=== PATIENT | female | born 1945 | race Caucasian/White ===

== ENCOUNTER 2016-08-06 08:54 | Inpatient (IN) | payer OTHER, MEDICARE ==
[~2016-08-06 08:54] MED LIST: CHLORHEXIDINE GLUC HIBICLENS 118 ML BTL TP ONE; ceFAZolin 2 GM/DEXTROSE 100 ML IV ONE
[2016-08-06] MEDS ORDERED: LIDOCAINE 1% 2 ML INJ ONE (09:15)
[2016-08-06] MEDS ORDERED: CEFAZOLIN 2 GM/DEXTROSE/100 ML BAG IV ONE (09:15)
[2016-08-06] MEDS ORDERED: BUPIVACAINE/EPI 0.25% 30 ML SDV ONE (09:19)
[2016-08-06] MEDS ORDERED: THROMBIN (RECOMBINANT) 20,000 UNIT VIAL TP ONE (09:21)
[2016-08-06] MEDS ORDERED: BACITRACIN 50,000 UNITS/10 ML SYR IRR ONE ×2 (09:21→13:56)
[2016-08-06] MEDS ORDERED: LR 1,000 ML IV ONE (10:02)
[2016-08-06] MEDS ORDERED: LIDOCAINE 1% 5 ML SDV ID PRN (10:02)
[2016-08-06 10:15] LABS: % IMMATURE GRANULYOCYTES 0.1 % (0.0-1.1); ABSOLUTE IMMATURE GRANULOCYTES 0.01 10^3/uL (0.00-0.10); ADD DIFF? NO; ADD MORPH? NO; ADD SCAN? NO; ATYPICAL LYMPHOCYTE FLAG 10 (0-99); FRAGMENT RBC FLAG 0 (0-99); HEMATOCRIT 40.2 % (38.0-47.0); HEMOGLOBIN 13.3 g/dL (12.6-16.3); LEFT SHIFT FLG 0 (0-99); LIPEMIA HEMOLYSIS FLAG 80 (0-99); MEAN CELL HEMOGLOBIN 31.9 pg (27.9-34.1); MEAN CELL HEMOGLOBIN CONCENTR. 33.1 g/dL (32.4-36.7); MEAN CELL VOLUME 96.4 fL (81.5-99.8); MEAN PLATELET VOLUME 9.1 fL (8.7-11.7); PLATELET CLUMPS FLAG 0 (0-99); PLATELET COUNT 251 10^3/uL (150-400); RED BLOOD CELL COUNT 4.17 10^6/uL (4.18-5.33); RED CELL DISTRIBUTION WIDTH 12.9 % (11.5-15.2)
[2016-08-06] MEDS ORDERED: PROPOFOL 200 MG/20 ML VIAL ONE (10:20)
[2016-08-06] MEDS ORDERED: fentaNYL 100 MCG/2 ML INJ ONE ×2 (10:20→17:19)
[2016-08-06] MEDS ORDERED: LIDOCAINE 2% 5 ML SDV ONE (10:21)
[2016-08-06] MEDS ORDERED: DEXAMETHASONE 4 MG/ML VIAL ONE ×2 (10:24)
[2016-08-06] MEDS ORDERED: ROCURONIUM 50 MG/5 ML VIAL ONE (10:25)
[2016-08-06] MEDS ORDERED: NON-FORMULARY NEW DRUG (Oxycodone Hcl/Acetaminophen [Percocet 7.5-325 Mg Tablet] 1 EACH) PO PRN (10:26)
[2016-08-06] MEDS ORDERED: diphenhydrAMINE 25 MG CAP PO PRN (10:27)
[2016-08-06] MEDS ORDERED: ACETAMINOPHEN 325 MG TAB PO PRN (10:27)
[2016-08-06] MEDS ORDERED: ONDANSETRON 4 MG/2 ML VIAL IVP PRN (10:27)
[2016-08-06] MEDS ORDERED: ONDANSETRON DISINTEGRATING 4 MG TAB PO PRN (10:27)
[2016-08-06] MEDS ORDERED: TEMAZEPAM 15 MG CAP PO PRN (10:27)
[2016-08-06] MEDS ORDERED: DIAZEPAM 10 MG/2 ML SYR IVP PRN (10:27)
[2016-08-06] MEDS ORDERED: NALOXONE HCL 0.4 MG/ML INJ IVP PRN (10:27)
[2016-08-06] MEDS ORDERED: BISACODYL 10 MG SUPP PR PRN (10:27)
[2016-08-06] MEDS ORDERED: MIDAZOLAM 2 MG/2 ML VIAL ONE (10:27)
[2016-08-06] MEDS ORDERED: LACTULOSE 20 GM/30 ML UDCUP PO PRN (10:27)
[2016-08-06] MEDS ORDERED: TRANEXAMIC ACID IV ONE (10:30)
[2016-08-06] MEDS ORDERED: NS IV ONE (10:30)
[2016-08-06] MEDS ORDERED: DEXMEDETOMIDINE HCL 200 MCG in NS 50 ML IV ONE ×2 (10:30→15:30)
[2016-08-06] MEDS ORDERED: NS W/ 20 KCl/L 1,000 ML IV SCH (10:30)
[2016-08-06] MEDS ORDERED: OXYCODONE/APAP 5/325 TAB PO PRN (10:37)
[2016-08-06] MEDS ORDERED: HYDROmorphONE/DILAUDID 2 MG/ML INJ ONE ×2 (11:05→14:29)
[2016-08-06] MEDS ORDERED: ceFAZolin 1 GM VIAL ONE (15:11)
[2016-08-06] MEDS ORDERED: ONDANSETRON 4 MG/2 ML VIAL ONE (16:37)
--- NOTE | 2016-08-06 16:59 | SOAPPROG ---
SOAP Progress Note Assessment/Plan: Post Op Visit: S: Awake and alert. NAD. Pt with expected lower back pain O: AFVSS/PERRLA/EOMI no droop CN 2-12 grossly intact +lt touch 5/5 BUE/BLE = CDI YUDI in place A/P: 71 yo female that is s/p TLIF L2-L5 -orders in place -HOB flat -call with any questions or concerns -pt seen by Dr Barbosa as well 08/06/16 16:57 Objective: Laboratory Results 08/06/16 09:58 ICD10 Worksheet Patient Problems: Problems Problem Status Onset Arthrodesis status Acute Lumbar radicular pain Acute Lumbar stenosis Acute - ICD10 Problem Qualifiers (1) Lumbar stenosis (2) Lumbar radicular pain (3) Arthrodesis status
[2016-08-06] MEDS ORDERED: HYDROmorphONE/DILAUDID 1 MG/ML SYR ONE ×2 (17:19→17:25)
[2016-08-06] MEDS: DEXMEDETOMIDINE HCL 400 MCG in NS 100 ML IV SCH (18:35)
[2016-08-06] MEDS: FAMOTIDINE 20 MG TAB PO SCH (20:35)
[2016-08-06] MEDS: GABAPENTIN 300 MG CAP PO SCH (20:35)
[2016-08-06] MEDS: CETIRIZINE 10 MG TAB PO SCH (20:35)
[2016-08-06] MEDS: morphINE SR 15 MG TAB PO SCH (20:35)
[2016-08-06] MEDS: guaiFENesin 600 MG TAB.ER PO SCH (20:35)
[2016-08-06] MEDS: SENNOSIDES/DOCUSATE SODIUM TAB PO SCH (20:45)
[2016-08-06] MEDS ORDERED: FAMOTIDINE 20 MG/NACL 50 ML IV SCH (21:00)
[2016-08-06] MEDS: Fluticasone/Salmeterol [Advair Hfa 230-21 Mcg Inhaler] 2 PUFFS IH SCH (21:40)
--- NOTE | 2016-08-06 21:51 | GOP ---
[f rep st] OPERATIVE REPORT DATE OF OPERATION: 08/06/2016 SURGEON: Robert Barbosa MD TARGETEER: Rakesh Alvarado PA-C. PREOPERATIVE DIAGNOSIS: 1. Lumbar spondylosis with severe lumbar degenerative disk disease L2-3, L3-4. 2. L4-5 lumbar stenosis. 3. L2-3, L3-4, L4-5 bilateral lumbosacral radiculopathy, right greater than left. 4. Axial low back pain. 5. Severe foraminal stenosis. POSTOPERATIVE DIAGNOSIS: 1. Lumbar spondylosis with severe lumbar degenerative disk disease L2-3, L3-4. 2. L4-5 lumbar stenosis. 3. L2-3, L3-4, L4-5 bilateral lumbosacral radiculopathy, right greater than left. 4. Axial low back pain. 5. Severe foraminal stenosis. PROCEDURE PERFORMED: Posterior, lateral and intervertebral arthrodesis with decompression bilateral ly L2-3, L3- 4 ([id number], [id number]), posterior, lateral and intervertebral arthrodesis with a left shakila-de compression L4-5 ([id number]), placement of non-anchored biomechanical intervertebral device L2-3, L3-4, L4-5 ([id number] x3), spinal stereotaxy, same-incision bone graft harvest, posterior segmental instrument ation, L2, L3, L4, L5, microscope. FINDINGS: ESTIMATED BLOOD LOSS: 500 cc. INDICATIONS: The patient had terrible axial low back pain and right greater than left leg pain, as well as a focal kyphosis at the thoracolumbar junction with severe disk degenerative change througho ut the lumbar spine. The L4-5, L5-S1 disks were not as degenerated as the upper lumbar spine. Ther e was stenosis present at L2-3, L3-4 and L4-5, with left-sided compression of the left L5 nerve root at L4-5, and bilateral stenosis at L2-3 and L3-4, with right greater than left stenosis, particular ly at L3-4 on the right and even at L2-3 on the right. I suggested a 3-level decompression with fus ion to try to treat all of her symptoms and the risk of continued symptoms was discussed. She under stood there was a risk of pseudoarthrosis, adjacent segment disease, screw and hardware malposition, malfunction, and/or fracture of the hardware. She knew there was a chance of major vascular injury , nerve injury, spinal fluid leak, and the possibility that surgery might fail to improve her sympto ms, and surgery could even make them worse. The chance of this is somewhat low, but she understood these were risks. She knew that at some point in the future she may develop adjacent segment diseas e and require further instrumented spine surgery. She accepted the risks and she did want to procee d. DESCRIPTION OF PROCEDURE: The patient was taken to the operating room, placed in the supine positio n. General anesthesia was begun. She was flipped prone onto the Lul table. Care was taken to pad all points of contact. Her back was sterilely prepped and draped in the usual fashion. The abelardo d was elevated in a reverse Trendelenburg position throughout the surgery. The O-arm was introduced sterilely onto the field. We made a midline incision from the spinous process of L1 down to the sp inous process of S1. The L2-3 level was somewhat superficial. One could easily palpate the spinous processes, but L4-5 was deep, deep within the soft tissues of the back. We used 100 mm retractors and these barely reached the L4-5 facet joint after our exposure had been made. We shot localizing x-rays. We denuded and removed the hypertrophic facet joints bilaterally at L2-3, L3-4, L4-5. We p reserved the L1-2 facet joint. We attached the Testin reference frame and used the O-arm to obtain intraoperative 3D imaging and used stereotactic guidance to place pedicle screws bilaterally at L5, L4, L3 and L2. They were all in acceptable position. They all stimulated greater than 20 milliamp eres and we performed another O-arm spin, confirming all the hardware within the pedicles without ev idence of breach or without evidence of a breaching the disk space itself. We took 100 mm rods. Th ey were lordotic. We decrease the lordosis slightly in the rods to reduce the tension. On the scre ws themselves, she had a very flat spine through this area. We placed the rods down over the screws , first on the right, then on the left, and then we went back to the right and re-replaced the right -sided khoi, gaining distraction and height between L2 and L5. The rods were locked in place. We re moved all the soft tissue of the bone of L2-3, L3-4, L4-5. We harvested the inferior L2, the comple te L3, the complete L4 spinous processes for autologous grafting purposes and then drilled bilateral laminas at L2-3, L3-4, and a left hemilaminectomy at L4-5 and harvested this bone for autologous gr afting purposes. Under the scope, we began at L4-5 and worked our way centrally up to L2-3 and cristino n working laterally. We took off the rostral arch of L5 on the left and performed a radical left-si ded hemilaminectomy at L4-5, decompressing the left L5 nerve root and the exiting L4 nerve root with a complete facetectomy. We did not do this on the patient's right side at L4-5. L3-4 was a bilate ral decompression with a left lateral recess decompression at L2-3 and L3-4. On the right-hand side , there was a bony, hypertrophic mass coming out of the superior articular process of L4, going thr ough the fragment down toward the disk, and this really could not be freed. We worked our way aroun d this circumferentially, working our way into the neural foramen and releasing it from the SAP of L 4 and then pulling it out of the spinal canal. This was also a large hypertrophic portion; it may h ave even been a calcified synovial cyst coming out of the right L3-4 facet joint; and it had bony un ion with the disk. As we removed this, we were looking into the disk space itself and there was a k ink in the right lateral dura at L3-4 where it had chronic mass effect on the lateral dura. We work ed our way up toward L2-3 and we found a similar phenomenon here, although it was less prominent alexander n at L3-4. On the left-hand side, there was no such phenomenon, but there was very severe left late ral recess stenosis at L2-3, L3-4. We per preserved the facet joints on the left at L2-3, L3-4 to a ssist in bony union. A nice bilateral decompression was obtained at each of those levels and I was very happy with this. We then began by mobilizing the left L5 nerve root, sweeping it medially, and then removing the L4-5 disk completely and roughening the subchondral bone to create arthrodesis. Here we chose an 8 mm x 28 mm expandable intervertebral device. We then went to the right-hand side and removed the right L3-4 disk, and roughened the subchondral bone to create arthrodesis at L3-4. The disk space was very tight and it was difficult to get enlargement enough to place an expandable implant into this disk space, but we were able to do it, and here we chose a 7 x 28 mm device. We went up to the L2-3 level where we swept the thecal sac medially. The ventral portion of the dura w as hung up on the retrolisthesed bone at L2-3, as well as what appeared to be an old calcified centr al disk protrusion at L2-3, and we could not fully mobilized the dura. We removed the L2-3 disk and then began to curet out the cartilaginous endplates. There really was very little space present an d I did not want to attempt an expandable device. I inserted a 6 mm blunt dissector, followed by th e 7 mm Sinking Spring spacer, and we were able to get this in. It would not go into the ventral disk spac e, only into the mid-disk space. We then took some BMP and placed it in a 7 mm Sinking Spring device and inserted it at L2-3, and I was happy enough with the positioning. Again, the device would not go in to the ventral disc space. There simply was no disk to inserted it into. We then went to the L3-4 level. Here, there was enough room to pack bony autograft and a small amount of BMP into the disk s pace, followed by the 7 x 20 mm Elevate cage. At L4-5, we worked from the patient's left-hand side and we filled the disk with bony autograft and a small amount of BMP and an 8 x 28 mm Elevate devise . These devices were inserted under fluoroscopic guidance and then expanded, and we had achieved a measure of some lordosis in the context of her previously flat back. We decorticated all the press operator apprentice olateral bone bilaterally from L2 to L5 and then packed BMP and bony autograft posterolaterally. No bone allograft was used. We actually had leftover autograft because we did a judiciously saved adams rything that had been removed in the decompression. A grand total of 3 mg of BMP was used on the en tire surgery. We had opened a small one and we used only 75% of that dosing. A cross-link was plac ed. A subfascial drain was placed. The patient was then closed in multiple layers using Vicryl sut ures. Steri-Strips were applied and she was reversed from anesthesia, but kept on a Precedex drip t o help with postoperative pain control, and transferred to the ICU. There were no complications. COMPLICATIONS: None. INSTRUMENTATION: [employer] Solera pedicle screw instrumentation with a Sinking Spring PEEK cage at L2-3 a nd we use an expandable 7 x 28 mm device and Elevate cage at L3-4 and we used an 8 x 28 mm expandabl e cage at L4-5. /[id number]/MODL
[2016-08-06] MEDS: HYDROCODONE/APAP 10/325 TAB PO PRN (22:08)
[2016-08-07] MEDS: DEXMEDETOMIDINE HCL 400 MCG in NS 100 ML IV SCH (04:37)
[2016-08-07] MEDS: HYDROCODONE/APAP 10/325 TAB PO PRN ×4 (04:48→19:24)
[2016-08-07 04:56] LABS: % IMMATURE GRANULYOCYTES 0.3 % (0.0-1.1); ABSOLUTE IMMATURE GRANULOCYTES 0.03 10^3/uL (0.00-0.10); ADD DIFF? NO; ADD MORPH? NO; ADD SCAN? NO; ATYPICAL LYMPHOCYTE FLAG 0 (0-99); FRAGMENT RBC FLAG 0 (0-99); LEFT SHIFT FLG 0 (0-99); LIPEMIA HEMOLYSIS FLAG 80 (0-99); MEAN CELL HEMOGLOBIN 31.9 pg (27.9-34.1); MEAN CELL HEMOGLOBIN CONCENTR. 33.3 g/dL (32.4-36.7); MEAN CELL VOLUME 95.8 fL (81.5-99.8); MEAN PLATELET VOLUME 9.5 fL (8.7-11.7); PLATELET CLUMPS FLAG 10 (0-99); PLATELET COUNT 218 10^3/uL (150-400); RED BLOOD CELL COUNT 3.13 10^6/uL (4.18-5.33); RED CELL DISTRIBUTION WIDTH 12.6 % (11.5-15.2)
[2016-08-07 05:01] LABS: ANION GAP 4 mEq/L (8-16); CALCIUM 8.6 mg/dL (8.5-10.4); CARBON DIOXIDE 25 mEq/l (22-31); CHLORIDE 109 mEq/L (97-110); CREATININE 0.8 mg/dL (0.6-1.0); GLOMERULAR FILTRATION RATE > 60; GLUCOSE 111 mg/dL (70-100); POTASSIUM 5.3 mEq/L (3.5-5.2); SODIUM 138 mEq/L (134-144)
--- NOTE | 2016-08-07 07:53 | NEUSURGPN ---
Date of Surgery: 08/06/16 Post Op Day: 1 Assessment/Plan: Assessment: 71 yo female that is s/p TLIF L2-L5 POD #1 Plan: -s/p TLIF L2-L5: doing well, pt with pain that is well controlled -PT/OT on hold -Xrays on hold -Pt to remain flat possibly thru the weekend -ok from Dr Barbosa to start Lovenox -continue with precedex -orders in place -call with any questions or concerns -pt seen by Dr Barbosa as well 08/06/16 16:57 Subjective: Awake and alert. NAD. Eating/drinking and voiding. Pt with some left median neuropathy that has improved. NO ramsey/neck/chest/abd or gu complaints. No f/c/n/ v/d. Objective: AFVSS/PERRLA/EOMI no droop CN 2-12 grossly intact +lt touch 5/5 BUE/BLE = CDI YUDI in place Neuro Check Frequency: per routine Urinary Catheter in Place: No Catheter Insertion Date: 08/06/16 - Physician Discussed Patient with DrTan: Familia Patient Seen by : Familia Neurosurgery Physical Exam - Vitals, I&O, Labs I and O 08/06/16 08/07/16 08/08/16 05:59 05:59 05:59 Intake Total 4272.2 Output Total 2713 Balance 1559.2 Weight 88.8 kg Intake: Oral (ml) 380 IV Intake (ml) 2900 IV Infused (ml) 992.2 Dexmedetomidine HCl 400 83.2 mcg In Ns 100 ml @ Titrate IV CONT TONIO Rx#: [id number] NS W/ 20 KCl/L 1,000 ml @ 859 75 mls/hr IV CONT TONIO Rx #:[id number] ceFAZolin 1 GM/DEXTROSE 50 50 ml @ 200 mls/hr IV Q8HRS TONIO Rx#:[id number] Output: Urine (ml) 2260 Catheter 2260 Estimated Blood Loss (ml) 400 Wound Drainage (ml) 53 Posterior Back Lul 53 Archer Other: Intake Quantity Yes Sufficient Vital Signs Temp Pulse Resp BP Pulse Ox 36.5 C 56 L 13 90/44 L 97 08/07/16 04:00 08/07/16 06:00 08/07/16 06:00 08/07/16 06:00 08/07/16 06:00 Laboratory Results 08/07/16 04:40 08/07/16 04:40 ICD10 Worksheet Patient Problems: Problems Problem Status Onset Arthrodesis status Acute Lumbar radicular pain Acute Lumbar stenosis Acute - ICD10 Problem Qualifiers (1) Lumbar stenosis (2) Lumbar radicular pain (3) Arthrodesis status
[2016-08-07] MEDS: LISINOPRIL 20 MG TAB PO SCH ×2 (08:38→18:12)
[2016-08-07] MEDS: GABAPENTIN 300 MG CAP PO SCH ×2 (08:44→20:58)
[2016-08-07] MEDS: FAMOTIDINE 20 MG TAB PO SCH ×2 (08:44→20:57)
[2016-08-07] MEDS: SENNOSIDES/DOCUSATE SODIUM TAB PO SCH ×2 (08:44→20:58)
[2016-08-07] MEDS: CETIRIZINE 10 MG TAB PO SCH ×2 (08:44→20:57)
[2016-08-07] MEDS: morphINE SR 15 MG TAB PO SCH ×2 (08:44→20:57)
[2016-08-07] MEDS: guaiFENesin 600 MG TAB.ER PO SCH ×2 (08:44→20:57)
[2016-08-07] MEDS: Fluticasone/Salmeterol [Advair Hfa 230-21 Mcg Inhaler] 2 PUFFS IH SCH ×2 (11:17→20:28)
[2016-08-07] MEDS: NS 1,000 ML IV SCH ×2 (12:17→20:56)
[2016-08-07] MEDS: HYDROmorphONE/DILAUDID 1 MG/ML SYR IVP PRN ×4 (14:08→20:52)
[2016-08-07] MEDS: METHOCARBAMOL 750 MG TAB PO PRN ×2 (15:12→20:57)
[2016-08-07] MEDS: oxyCODONE IR 5 MG TAB PO PRN (16:25)
[2016-08-07] MEDS: ENOXAPARIN 40 MG/0.4 ML SYR SC SCH (16:25)
[2016-08-07] MEDS: DIAZEPAM 5 MG TAB PO PRN (18:12)
[2016-08-08] MEDS: HYDROmorphONE/DILAUDID 1 MG/ML SYR IVP PRN ×3 (00:57→07:19)
[2016-08-08] MEDS: DEXMEDETOMIDINE HCL 400 MCG in NS 100 ML IV SCH (03:40)
[2016-08-08] MEDS: HYDROCODONE/APAP 10/325 TAB PO PRN ×4 (04:54→23:01)
[2016-08-08] MEDS: guaiFENesin 600 MG TAB.ER PO SCH ×2 (07:28→20:16)
[2016-08-08] MEDS: oxyCODONE IR 5 MG TAB PO PRN ×4 (07:28→23:01)
[2016-08-08] MEDS: SENNOSIDES/DOCUSATE SODIUM TAB PO SCH ×2 (07:28→20:16)
[2016-08-08] MEDS: ENOXAPARIN 40 MG/0.4 ML SYR SC SCH (07:28)
[2016-08-08] MEDS: GABAPENTIN 300 MG CAP PO SCH ×2 (07:28→20:16)
[2016-08-08] MEDS: morphINE SR 15 MG TAB PO SCH ×2 (07:28→20:16)
[2016-08-08] MEDS: CETIRIZINE 10 MG TAB PO SCH ×2 (07:28→20:16)
[2016-08-08] MEDS: LISINOPRIL 20 MG TAB PO SCH (07:29)
[2016-08-08] MEDS: FAMOTIDINE 20 MG TAB PO SCH ×2 (07:29→20:16)
[2016-08-08] MEDS: DIAZEPAM 5 MG TAB PO PRN ×3 (07:29→23:35)
--- NOTE | 2016-08-08 09:02 | NEUSURGPN ---
Assessment/Plan: Assessment: 71 yo female that is s/p TLIF L2-L5 POD #2 Plan: -s/p TLIF L2-L5: doing well, pt with pain that is well controlled -PT/OT on hold -Xrays on hold -Pt to remain flat until Thursday and then advance activity. -ok from Dr Barbosa to start Lovenox -continue with precedex -YUDI drain out -orders in place -call with any questions or concerns -pt d/w Dr Barbosa as well Subjective: Pt resting in bed, having some difficulty with urinating. Precedex helping control pain. Objective: AAOx3 NAD VSS MAEx4 Motor 5/5 BLE On bedpan +LT Urinary Catheter in Place: No Catheter Insertion Date: 08/06/16 - Physician Discussed Patient with : Familia Neurosurgery Physical Exam - Vitals, I&O, Labs I and O 08/07/16 08/08/16 08/09/16 05:59 05:59 05:59 Intake Total 4272.2 2982.9 Output Total 2713 1370 Balance 1559.2 1612.9 Weight 88.8 kg 86.2 kg Intake: Oral (ml) 380 1130 IV Intake (ml) 2900 IV Infused (ml) 992.2 1852.9 Dexmedetomidine HCl 400 83.2 120.9 mcg In Ns 100 ml @ Titrate IV CONT TONIO Rx#: [id number] NS W/ 20 KCl/L 1,000 ml @ 859 400 75 mls/hr IV CONT TONIO Rx #:[id number] Ns 1,000 ml @ 75 mls/hr 1332 IV CONT TONIO Rx#: [id number] ceFAZolin 1 GM/DEXTROSE 50 50 ml @ 200 mls/hr IV Q8HRS TONIO Rx#:[id number] Output: Urine (ml) 2260 1345 Bedpan 1345 Catheter 2260 Estimated Blood Loss (ml) 400 Wound Drainage (ml) 53 25 Posterior Back Lul 53 25 Archer Other: Intake Quantity Yes Sufficient Output Comment Bedpan Large quantity spilled from bedpan onto chux. Number of Voids Bedpan 1 Vital Signs Temp Pulse Resp BP Pulse Ox 36.9 C 70 19 106/46 L 91 L 08/08/16 08:00 08/08/16 08:00 08/08/16 08:00 08/08/16 08:00 08/08/16 08:00 Laboratory Results 08/07/16 04:40 08/07/16 04:40 ICD10 Worksheet Patient Problems: Problems Problem Status Onset Arthrodesis status Acute Lumbar radicular pain Acute Lumbar stenosis Acute
[2016-08-08] MEDS: Fluticasone/Salmeterol [Advair Hfa 230-21 Mcg Inhaler] 2 PUFFS IH SCH ×2 (09:20→21:20)
[2016-08-08] MEDS: NS 1,000 ML IV SCH (09:55)
[2016-08-08] MEDS: HYDROmorphONE/DILAUDID 6 MG/30 ML PCA IV PRN ×2 (10:51→23:04)
[2016-08-08] MEDS: METHOCARBAMOL 750 MG TAB PO PRN (20:13)
[2016-08-09] MEDS: oxyCODONE IR 5 MG TAB PO PRN ×5 (01:58→21:41)
[2016-08-09] MEDS: METHOCARBAMOL 750 MG TAB PO PRN ×4 (01:59→21:42)
[2016-08-09] MEDS: HYDROCODONE/APAP 10/325 TAB PO PRN ×6 (01:59→18:35)
--- NOTE | 2016-08-09 06:51 | NEUSURGPN ---
Date of Surgery: 08/06/16 Post Op Day: 3 Assessment/Plan: Assessment: 71 yo female that is s/p TLIF L2-L5 POD #3 Plan: -s/p TLIF L2-L5: doing well, pt with pain that is well controlled with small amount of Precedex-will work on weaning this today -PT/OT to start later today after pt is more upright -Xrays reordered for today when upright -Pt to start to progress upright-please call with any changes or headaches -ok from Dr Barbosa for Lovenox -work to discontinue precedex -CDI -YUDI removed intact -orders in place -call with any questions or concerns -d/w Dr Babrosa 08/06/16 16:57 Subjective: Awake and alert. NAD. Eating/drinking and voiding. No f/c/n/v/d. No ramsey/neck/ chest/abd or gu complaints. Objective: AAOx3 NAD VSS MAEx4 Motor 5/5 BLE CDI-drain removed-steristrips in place +LT Neuro Check Frequency: per routine Urinary Catheter in Place: No Urinary Catheter Indication: Other (Use Comment) Catheter Insertion Date: 08/06/16 - Physician Discussed Patient with : Familia Neurosurgery Physical Exam - Vitals, I&O, Labs I and O 08/08/16 08/09/16 08/10/16 05:59 05:59 06:59 Intake Total 2982.9 1538.6 Output Total 1370 2600 Balance 1612.9 -1061.4 Weight 86.2 kg Intake: Oral (ml) 1130 1026 IV Infused (ml) 1852.9 512.6 Dexmedetomidine HCl 400 120.9 30 mcg In Ns 100 ml @ Titrate IV CONT TONIO Rx#: [id number] HYDROmorphone HCL See 2.6 Protocol IV PRN PRN Rx#: [id number] NS W/ 20 KCl/L 1,000 ml @ 400 75 mls/hr IV CONT TONIO Rx #:[id number] Ns 1,000 ml @ 75 mls/hr 1332 480 IV CONT TONIO Rx#: [id number] Output: Urine (ml) 1345 2600 Bedpan 1345 2600 Wound Drainage (ml) 25 0 Posterior Back Lul 25 0 Archer Other: Output Comment Bedpan Large quantity spilled from bedpan onto chux. large amount of urine on pad beneath pt Number of Voids Bedpan 1 Bladder Scan Volume (ml) Bedpan 922 Vital Signs Temp Pulse Resp BP Pulse Ox 37 C 86 16 101/44 L 99 08/09/16 04:00 08/09/16 06:00 08/09/16 06:00 08/09/16 06:00 08/09/16 06:00 Laboratory Results 08/07/16 04:40 08/07/16 04:40 ICD10 Worksheet Patient Problems: Problems Problem Status Onset Arthrodesis status Acute Lumbar radicular pain Acute Lumbar stenosis Acute - ICD10 Problem Qualifiers (1) Lumbar stenosis (2) Lumbar radicular pain (3) Arthrodesis status
[2016-08-09] MEDS ORDERED: ENOXAPARIN 40 MG/0.4 ML SYR SC SCH (09:00)
[2016-08-09] MEDS: GABAPENTIN 300 MG CAP PO SCH ×2 (09:25→21:01)
[2016-08-09] MEDS: LISINOPRIL 20 MG TAB PO SCH (09:25)
[2016-08-09] MEDS: morphINE SR 15 MG TAB PO SCH ×2 (09:26→21:03)
[2016-08-09] MEDS: SENNOSIDES/DOCUSATE SODIUM TAB PO SCH ×2 (09:27→21:03)
[2016-08-09] MEDS: CETIRIZINE 10 MG TAB PO SCH ×2 (09:28→21:03)
[2016-08-09] MEDS: ENOXAPARIN 40 MG/0.4 ML SYR SC SCH (09:29)
[2016-08-09] MEDS: FAMOTIDINE 20 MG TAB PO SCH ×2 (09:30→21:03)
[2016-08-09] MEDS: guaiFENesin 600 MG TAB.ER PO SCH ×2 (09:30→21:01)
[2016-08-09] MEDS: Fluticasone/Salmeterol [Advair Hfa 230-21 Mcg Inhaler] 2 PUFFS IH SCH ×2 (10:02→21:47)
[2016-08-09] MEDS: HYDROmorphONE/DILAUDID 6 MG/30 ML PCA IV PRN (14:00)
[2016-08-09] MEDS: DIAZEPAM 5 MG TAB PO PRN (18:35)
[2016-08-10] MEDS: DIAZEPAM 5 MG TAB PO PRN ×4 (00:48→19:57)
[2016-08-10] MEDS: HYDROCODONE/APAP 10/325 TAB PO PRN ×4 (00:49→15:09)
[2016-08-10] MEDS: oxyCODONE IR 5 MG TAB PO PRN ×2 (01:05→05:03)
--- NOTE | 2016-08-10 06:40 | NEUSURGPN ---
Date of Surgery: 08/06/16 Post Op Day: 4 Assessment/Plan: Assessment: 71 yo female that is s/p TLIF L2-L5 POD #4 Plan: -s/p TLIF L2-L5: doing well, pt with pain that is well controlled-off Precedex -PT/OT-CPM -Xrays reordered for today when upright -Pt tolerated upright and walking around room. Will encourage more ambulation. No headaches. Pt with some expected lower back pain related to the surgery -please call with any changes or headaches -on Lovenox -off precedex -CDI -YUDI site looks good -orders in place -call with any questions or concerns -d/w Dr Barbosa 08/06/16 16:57 Subjective: Awake and alert. NAD. Eating/drinking and voiding. No f/c/n/v/d. No ramsey/neck/ chest/abd or gu complaints. Objective: AAOx3 NAD VSS MAEx4 Motor 5/5 BLE CDI-drain site looks good-steristrips in place +LT Neuro Check Frequency: per routine Urinary Catheter in Place: No Catheter Insertion Date: 08/06/16 - Physician Discussed Patient with : Familia Neurosurgery Physical Exam - Vitals, I&O, Labs I and O 08/09/16 08/10/16 08/11/16 04:59 05:59 05:59 Intake Total Output Total Balance Weight Intake: Oral (ml) IV Intake (ml) IV Infused (ml) Dexmedetomidine HCl 400 mcg In Ns 100 ml @ Titrate IV CONT TONIO Rx#: [id number] HYDROmorphone HCL See Protocol IV PRN PRN Rx#: [id number] Ns 1,000 ml @ 75 mls/hr IV CONT TONIO Rx#: [id number] Output: Urine (ml) Bedpan Bedside Commode Wound Drainage (ml) Posterior Back Lul Archer Other: Output Comment Bedpan Number of Voids Toilet Bladder Scan Volume (ml) Bedpan Vital Signs Temp Pulse Resp BP Pulse Ox 36.5 C 80 14 110/38 L 99 08/10/16 04:00 08/10/16 04:00 08/10/16 04:00 08/10/16 04:00 08/10/16 04:00 Laboratory Results 08/07/16 04:40 08/07/16 04:40 ICD10 Worksheet Patient Problems: Problems Problem Status Onset Arthrodesis status Acute Lumbar radicular pain Acute Lumbar stenosis Acute - ICD10 Problem Qualifiers (1) Lumbar stenosis (2) Lumbar radicular pain (3) Arthrodesis status
[2016-08-10] MEDS: HYDROmorphONE/DILAUDID 6 MG/30 ML PCA IV PRN (07:07)
[2016-08-10] MEDS: Fluticasone/Salmeterol [Advair Hfa 230-21 Mcg Inhaler] 2 PUFFS IH SCH ×2 (07:56→19:45)
[2016-08-10] MEDS: CETIRIZINE 10 MG TAB PO SCH ×2 (08:50→20:53)
[2016-08-10] MEDS: ENOXAPARIN 40 MG/0.4 ML SYR SC SCH (08:50)
[2016-08-10] MEDS: morphINE SR 15 MG TAB PO SCH ×3 (08:50→20:53)
[2016-08-10] MEDS: guaiFENesin 600 MG TAB.ER PO SCH ×2 (08:50→20:53)
[2016-08-10] MEDS: GABAPENTIN 300 MG CAP PO SCH ×2 (08:51→20:53)
[2016-08-10] MEDS: FAMOTIDINE 20 MG TAB PO SCH ×2 (08:51→20:53)
[2016-08-10] MEDS: SENNOSIDES/DOCUSATE SODIUM TAB PO SCH ×2 (08:51→20:53)
[2016-08-10] MEDS: LISINOPRIL 20 MG TAB PO SCH (08:51)
[2016-08-10] MEDS: METHOCARBAMOL 750 MG TAB PO PRN ×2 (15:09→20:53)
[2016-08-10] MEDS: NS 1,000 ML IV SCH (16:02)
[2016-08-10] MEDS: HYDROCODONE/APAP 10/325 TAB PO SCH ×3 (17:32→22:59)
[2016-08-11] MEDS: oxyCODONE IR 5 MG TAB PO PRN ×3 (02:58→13:37)
[2016-08-11] MEDS: METHOCARBAMOL 750 MG TAB PO PRN ×4 (02:58→20:47)
[2016-08-11] MEDS: HYDROmorphONE/DILAUDID 1 MG/ML SYR IVP PRN (03:24)
[2016-08-11] MEDS: HYDROCODONE/APAP 10/325 TAB PO SCH ×4 (04:50→22:56)
--- NOTE | 2016-08-11 07:43 | SOAPPROG ---
SOAP Progress Note Assessment/Plan: Assessment: 71 yo F POD #5 L2-5 TLIF Plan: stable post op x-rays still pending PT/OT dc management planner to eval dc options scd/brendan/lovenox for dvt prophylaxis please call with neuro changes discussed with Dr Barbosa 08/11/16 07:41 Subjective: continued back pain, no leg pain no headaches. Objective: Vital Signs Temp Pulse Resp BP Pulse Ox 36.7 C 82 14 136/58 H 97 08/11/16 03:44 08/11/16 03:44 08/11/16 03:44 08/11/16 03:44 08/11/16 03:44 Laboratory Results 08/07/16 04:40 08/07/16 04:40 08/10/16 08/11/16 08/12/16 05:59 05:59 05:59 Intake Total 1530 Output Total 1900 Balance -370 AAOx4, +FC PERRL, EOMI, no facial droop 5/5 + light touch C/D/I ICD10 Worksheet Patient Problems: Problems Problem Status Onset Arthrodesis status Acute Lumbar radicular pain Acute Lumbar stenosis Acute
[2016-08-11] MEDS: Fluticasone/Salmeterol [Advair Hfa 230-21 Mcg Inhaler] 2 PUFFS IH SCH ×2 (08:57→21:44)
[2016-08-11] MEDS: ENOXAPARIN 40 MG/0.4 ML SYR SC SCH (09:05)
[2016-08-11] MEDS: GABAPENTIN 300 MG CAP PO SCH ×2 (09:05→20:47)
[2016-08-11] MEDS: FAMOTIDINE 20 MG TAB PO SCH ×2 (09:05→20:47)
[2016-08-11] MEDS: SENNOSIDES/DOCUSATE SODIUM TAB PO SCH ×2 (09:06→20:47)
[2016-08-11] MEDS: LISINOPRIL 20 MG TAB PO SCH (09:06)
[2016-08-11] MEDS: POLYETHYLENE GLYCOL 3350 17 GM PKT PO PRN (09:06)
[2016-08-11] MEDS: morphINE SR 15 MG TAB PO SCH ×3 (09:07→22:56)
[2016-08-11] MEDS: guaiFENesin 600 MG TAB.ER PO SCH ×2 (09:07→20:47)
[2016-08-11] MEDS: CETIRIZINE 10 MG TAB PO SCH ×2 (09:07→20:47)
[2016-08-11] MEDS: DIAZEPAM 5 MG TAB PO PRN (10:00)
[2016-08-12] MEDS: HYDROCODONE/APAP 10/325 TAB PO SCH ×5 (04:01→22:27)
[2016-08-12] MEDS: POLYETHYLENE GLYCOL 3350 17 GM PKT PO PRN (06:20)
--- NOTE | 2016-08-12 07:46 | NEUSURGPN ---
Date of Surgery: 08/06/16 Post Op Day: 6 Assessment/Plan: Assessment: 71 yo female that is s/p TLIF L2-L5 POD #6 Plan: -s/p TLIF L2-L5: doing ok, pt with continued pain that we are trying to find a solution to her pain -PT/OT-CPM -Xrays look good-no complications noted -Pt tolerated upright and walking around room. Will encourage more ambulation. No headaches. Pt with some expected lower back pain related to the surgery -please call with any changes or headaches -on Lovenox -CDI -YUDI site looks good -orders in place -call with any questions or concerns -d/w Dr Barbosa 08/06/16 16:57 Subjective: Awake and alert. NAD. Eating/drinking and voiding. No f/c/n/v/d. No ramsey/neck/ chest/abd or gu complaints. Objective: AAOx4, +FC PERRL, EOMI, no facial droop 5/5 + light touch C/D/I Neuro Check Frequency: per routine Urinary Catheter in Place: No Catheter Insertion Date: 08/06/16 - Physician Discussed Patient with : Familia Patient Seen by : Familia Neurosurgery Physical Exam - Vitals, I&O, Labs I and O 08/11/16 08/12/16 08/13/16 05:59 05:59 05:59 Intake Total 1530 500 Output Total 1900 2550 Balance -370 -2050 Intake: Oral (ml) 1350 500 IV Infused (ml) 180 Ns 1,000 ml @ 75 mls/hr 180 IV CONT TONIO Rx#: [id number] Output: Urine (ml) 1900 2550 Bedside Commode 1100 1800 Toilet 800 750 Other: Number of Voids Bedside Commode 1 1 Vital Signs Temp Pulse Resp BP Pulse Ox 36.5 C 82 16 129/58 H 96 08/12/16 00:00 08/12/16 00:00 08/12/16 00:00 08/12/16 00:00 08/12/16 00:00 Laboratory Results 08/07/16 04:40 08/07/16 04:40 ICD10 Worksheet Patient Problems: Problems Problem Status Onset Arthrodesis status Acute Lumbar radicular pain Acute Lumbar stenosis Acute - ICD10 Problem Qualifiers (1) Lumbar stenosis (2) Lumbar radicular pain (3) Arthrodesis status
[2016-08-12] MEDS: GABAPENTIN 300 MG CAP PO SCH ×2 (08:47→21:08)
[2016-08-12] MEDS: CETIRIZINE 10 MG TAB PO SCH ×2 (08:48→21:08)
[2016-08-12] MEDS: SENNOSIDES/DOCUSATE SODIUM TAB PO SCH ×2 (08:48→21:08)
[2016-08-12] MEDS: LISINOPRIL 20 MG TAB PO SCH (08:48)
[2016-08-12] MEDS: FAMOTIDINE 20 MG TAB PO SCH ×2 (08:48→21:08)
[2016-08-12] MEDS: morphINE SR 15 MG TAB PO SCH ×3 (08:48→21:08)
[2016-08-12] MEDS: ENOXAPARIN 40 MG/0.4 ML SYR SC SCH (08:48)
[2016-08-12] MEDS: guaiFENesin 600 MG TAB.ER PO SCH ×2 (08:48→21:08)
[2016-08-12] MEDS: METHOCARBAMOL 750 MG TAB PO PRN ×2 (08:52→22:27)
[2016-08-12] MEDS: Fluticasone/Salmeterol [Advair Hfa 230-21 Mcg Inhaler] 2 PUFFS IH SCH ×2 (09:06→21:22)
[2016-08-13] MEDS: HYDROCODONE/APAP 10/325 TAB PO SCH ×3 (05:42→17:33)
[2016-08-13] MEDS: METHOCARBAMOL 750 MG TAB PO PRN ×3 (05:42→17:34)
--- NOTE | 2016-08-13 07:19 | NEUSURGPN ---
Date of Surgery: 08/06/16 Post Op Day: 7 Assessment/Plan: Assessment: 71 yo female that is s/p TLIF L2-L5 POD #7 Plan: -s/p TLIF L2-L5: doing ok, pt with continued pain that this am has been the best it has been-she is happier -PT/OT-CPM -Xrays look good-no complications noted -Pt tolerated upright and walking around room. Will encourage more ambulation. No headaches. Pt with some expected lower back pain related to the surgery -please call with any changes or headaches -plan for dc in next day or so to home instead of rehab so may need an extra day or so. Plan maybe for today if meets criteria -on Lovenox -CDI -YUDI site looks good -orders in place -call with any questions or concerns -d/w and seen by Dr Barbosa 08/06/16 16:57 Subjective: Awake and alert. NAD. Eating/drinking and voiding. No f/c/n/v/d. No other complaints or concerns. Objective: AAO x 3, PERRLA/EOMI no droop CN 2-12 grossly intact +lt touch 5/5 BUE/BLE = CDI Neuro Check Frequency: per routine Urinary Catheter in Place: No Catheter Insertion Date: 08/06/16 - Physician Discussed Patient with : Familia Patient Seen by : Familia Neurosurgery Physical Exam - Vitals, I&O, Labs I and O 08/12/16 08/13/16 08/14/16 05:59 05:59 05:59 Intake Total 500 1300 Output Total 2750 1950 Balance -2250 -650 Intake: Oral (ml) 500 1300 Output: Urine (ml) 2750 1950 Bedside Commode 1800 Toilet 950 1950 Other: Intake Quantity Yes Sufficient Number of Voids Bedside Commode 1 Toilet 1 2 Vital Signs Temp Pulse Resp BP Pulse Ox 36.7 C 83 16 133/60 H 92 08/12/16 23:21 08/12/16 23:21 08/12/16 23:21 08/12/16 23:21 08/12/16 23:21 Laboratory Results 08/07/16 04:40 08/07/16 04:40 ICD10 Worksheet Patient Problems: Problems Problem Status Onset Arthrodesis status Acute Lumbar radicular pain Acute Lumbar stenosis Acute - ICD10 Problem Qualifiers (1) Lumbar stenosis (2) Lumbar radicular pain (3) Arthrodesis status
[2016-08-13] MEDS: ENOXAPARIN 40 MG/0.4 ML SYR SC SCH (09:38)
[2016-08-13] MEDS: guaiFENesin 600 MG TAB.ER PO SCH ×2 (09:38→21:44)
[2016-08-13] MEDS: CETIRIZINE 10 MG TAB PO SCH ×2 (09:39→21:44)
[2016-08-13] MEDS: LISINOPRIL 20 MG TAB PO SCH (09:39)
[2016-08-13] MEDS: morphINE SR 15 MG TAB PO SCH ×3 (09:39→21:44)
[2016-08-13] MEDS: FAMOTIDINE 20 MG TAB PO SCH ×2 (09:39→21:44)
[2016-08-13] MEDS: SENNOSIDES/DOCUSATE SODIUM TAB PO SCH ×2 (09:39→21:44)
[2016-08-13] MEDS: Fluticasone/Salmeterol [Advair Hfa 230-21 Mcg Inhaler] 2 PUFFS IH SCH (09:40)
[2016-08-13] MEDS: GABAPENTIN 300 MG CAP PO SCH ×2 (09:40→21:44)
[2016-08-13] MEDS: MAGNESIUM HYDROXIDE 30 ML UDCUP PO PRN (09:45)
[2016-08-14] MEDS: METHOCARBAMOL 750 MG TAB PO PRN ×3 (00:03→14:44)
[2016-08-14] MEDS: HYDROCODONE/APAP 10/325 TAB PO SCH ×4 (00:03→17:35)
[2016-08-14] MEDS: Fluticasone/Salmeterol [Advair Hfa 230-21 Mcg Inhaler] 2 PUFFS IH SCH ×3 (02:50→20:43)
[2016-08-14] MEDS ORDERED: METHYLNALTREXONE BROMIDE 12 MG/0.6 ML INJ SC ONE (07:50)
--- NOTE | 2016-08-14 08:28 | NEUSURGPN ---
Date of Surgery: 08/06/16 Post Op Day: 8 Assessment/Plan: Assessment: 71 yo female that is s/p TLIF L2-L5 POD #8 Plan: -s/p TLIF L2-L5: doing ok, pt with continued pain that does continue to improve -PT/OT-CPM -Xrays look good-no complications noted -Pt tolerated upright and walking around room. Will encourage more ambulation. No headaches. Pt with some expected lower back pain related to the surgery -please call with any changes or headaches -plan for dc in next day or so to home instead of rehab so may need an extra day or so. Plan maybe for today if meets criteria -still working on a BM-added Relistor -on incrediblue -CDI -YUDI site looks good -orders in place -call with any questions or concerns -d/w and seen by Dr Barbosa 08/06/16 16:57 Subjective: Awake and alert. Pt states less pain than before. No ramsey/neck/chest/abd or gu complaints. No f/c/n/v/d. Objective: AAO x 3, PERRLA/EOMI no droop CN 2-12 grossly intact +lt touch 5/5 BUE/BLE = CDI Neuro Check Frequency: per routine Urinary Catheter in Place: No Catheter Insertion Date: 08/06/16 - Physician Discussed Patient with : Familia Patient Seen by : Familia Neurosurgery Physical Exam - Vitals, I&O, Labs I and O 08/13/16 08/14/16 08/15/16 05:59 05:59 05:59 Intake Total 1300 2400 Output Total 1950 Balance -650 2400 Intake: Oral (ml) 1300 2400 Output: Urine (ml) 1950 Toilet 1950 Other: Intake Quantity Yes Yes Sufficient Number of Voids Toilet 2 2 Number of Stools Toilet 1 Vital Signs Temp Pulse Resp BP Pulse Ox 36.6 C 84 18 122/66 H 90 L 08/14/16 08:00 08/14/16 08:00 08/14/16 08:00 08/14/16 08:00 08/14/16 08:00 Laboratory Results 08/07/16 04:40 08/07/16 04:40 ICD10 Worksheet Patient Problems: Problems Problem Status Onset Arthrodesis status Acute Lumbar radicular pain Acute Lumbar stenosis Acute - ICD10 Problem Qualifiers (1) Lumbar stenosis (2) Lumbar radicular pain (3) Arthrodesis status
[2016-08-14] MEDS: morphINE SR 15 MG TAB PO SCH ×3 (09:36→21:35)
[2016-08-14] MEDS: GABAPENTIN 300 MG CAP PO SCH ×2 (09:37→21:35)
[2016-08-14] MEDS: guaiFENesin 600 MG TAB.ER PO SCH ×2 (09:37→21:35)
[2016-08-14] MEDS: oxyCODONE IR 5 MG TAB PO PRN (09:37)
[2016-08-14] MEDS: LISINOPRIL 20 MG TAB PO SCH (09:38)
[2016-08-14] MEDS: SENNOSIDES/DOCUSATE SODIUM TAB PO SCH ×2 (09:38→21:35)
[2016-08-14] MEDS: ENOXAPARIN 40 MG/0.4 ML SYR SC SCH (09:39)
[2016-08-14] MEDS: CETIRIZINE 10 MG TAB PO SCH ×2 (09:39→21:35)
[2016-08-14] MEDS: POLYETHYLENE GLYCOL 3350 17 GM PKT PO PRN (09:39)
[2016-08-14] MEDS: FAMOTIDINE 20 MG TAB PO SCH ×2 (09:39→21:35)
[2016-08-14] MEDS: MAGNESIUM HYDROXIDE 30 ML UDCUP PO PRN (09:39)
[2016-08-15] MEDS: HYDROCODONE/APAP 10/325 TAB PO SCH ×4 (00:06→15:18)
[2016-08-15] MEDS: SENNOSIDES/DOCUSATE SODIUM TAB PO SCH (07:38)
[2016-08-15] MEDS: ENOXAPARIN 40 MG/0.4 ML SYR SC SCH (07:39)
[2016-08-15] MEDS: LISINOPRIL 20 MG TAB PO SCH ×2 (07:39→07:41)
[2016-08-15] MEDS: guaiFENesin 600 MG TAB.ER PO SCH (07:42)
[2016-08-15] MEDS: CETIRIZINE 10 MG TAB PO SCH (07:42)
[2016-08-15] MEDS: GABAPENTIN 300 MG CAP PO SCH (07:42)
[2016-08-15] MEDS: morphINE SR 15 MG TAB PO SCH (07:43)
[2016-08-15] MEDS: POLYETHYLENE GLYCOL 3350 17 GM PKT PO PRN (07:43)
[2016-08-15] MEDS: FAMOTIDINE 20 MG TAB PO SCH (07:43)
[2016-08-15] MEDS: METHOCARBAMOL 750 MG TAB PO PRN ×2 (07:48→15:18)
[2016-08-15 07:51] VITALS: BP 132/68
[2016-08-15 07:52] VITALS: RESP 16; TEMP 98.1; O2SAT 92
[2016-08-15] MEDS: Fluticasone/Salmeterol [Advair Hfa 230-21 Mcg Inhaler] 2 PUFFS IH SCH (08:10)
[2016-08-15 08:14] VITALS: PULSE 76
--- NOTE | 2016-08-15 09:01 | NEUSURGPN ---
Assessment/Plan: ssessment: 71 yo female that is s/p TLIF L2-L5 POD #9 Plan: -s/p TLIF L2-L5: doing ok, pt with continued pain that does continue to improve -PT/OT-CPM -Xrays look good-no complications noted -Pt tolerated upright and walking around room. Will encourage more ambulation. No headaches. Pt with some expected lower back pain related to the surgery -please call with any changes or headaches -plan for dc today with [facility] pending clinical course -Pt had BM -on Lovenox -CDI -YUDI site looks good -call with any questions or concerns -d/w Dr Barbosa Subjective: Pt resting in bed, had BM that was large. Hopes to DC today. Objective: AAOx3 NAD VSS MAEx4 Motor 5/5 BLE Incision cdi ster strips intact +LT Urinary Catheter in Place: No Catheter Insertion Date: 08/06/16 - Physician Discussed Patient with : Familia Neurosurgery Physical Exam - Vitals, I&O, Labs I and O 08/14/16 08/15/16 08/16/16 05:59 05:59 05:59 Intake Total 2400 600 Output Total 800 Balance 2400 -200 Intake: Oral (ml) 2400 600 Output: Urine (ml) 800 Bedside Commode 800 Other: Intake Quantity Yes Yes Sufficient Number of Voids Toilet 2 Number of Stools Toilet 1 Vital Signs Temp Pulse Resp BP Pulse Ox 36.7 C 76 16 132/68 H 92 08/15/16 07:51 08/15/16 08:11 08/15/16 07:51 08/15/16 07:51 08/15/16 07:51 Laboratory Results 08/07/16 04:40 08/07/16 04:40 ICD10 Worksheet Patient Problems: Problems Problem Status Onset Arthrodesis status Acute Lumbar radicular pain Acute Lumbar stenosis Acute
--- NOTE | 2016-08-15 13:12 | PDIAF ---
- Diagnosis Code Status: Full Code - Medication Management Discharge Medications: Medications to Continue on Transfer Ascorbic Acid [Vitamin C 500 mg (*)] 1,000 mg PO DAILY 07/09/16 [Last Taken 06/17] Calcium Carbonate [Tums 500MG (*)] 1,000 mg PO BID 07/09/16 [Last Taken 08/05/16 ] Cetirizine [ZyrTEC 10 mg (*)] 10 mg PO BID 07/09/16 [Last Taken 08/06/16 06:30] FLUTICASONE/SALMETEROL [ADVAIR HFA 230-21 MCG INHALER] 2 puffs IH BID 07/09/16 [ Last Taken 08/05/16 23:00] Gabapentin [Neurontin 300 MG (*)] 300 mg PO BID 07/09/16 [Last Taken 08/06/16 06 :30] Lisinopril [Zestril 20 mg (*)] 20 mg PO DAILY 07/09/16 [Last Taken 08/05/16] Multivitamins [Multivitamin (*)] 1 each PO DAILY 07/09/16 [Last Taken 07/30/16] guaiFENesin [Mucinex 600 MG (*)] 600 mg PO BID 07/09/16 [Last Taken 08/06/16 06: 30] HYDROcodone/APAP 10/325 [[place] 10/325 (*)] 2 tab PO Q6H #90 tab 08/15/16 [Last Taken Unknown] Methocarbamol [Robaxin 750 mg (*)] 750 mg PO QID PRN #60 tab 08/15/16 [Last Taken Unknown] Sennosides/Docusate Sodium [Senokot-S] 1 - 2 tab PO BID #0 tab 08/15/16 [Last Taken Unknown] morphINE SR [Ms Contin/Oramorph 15 mg (*)] 15 mg PO TID #60 tab 08/15/16 [Last Taken Unknown] Discharge Medications: Refer to the Discharge Home Medication list for PRN reason. PICC Care - Routine: N/A - Orders Services needed: Home Care, Physical Therapy, Occupational Therapy Home Care Face to Face: I certify that this patient was under my care and that I had the required [id number] encounter meeting the encounter requirements on the discharge day. My findings support the fact that the patient is homebound as defined in CMS Chapter 7 Medicare Benefits Manual 30.1.1, The condition of the patient is such that there exists a normal inability to leave home and consequently, leaving home would require a considerable and taxing effort. Diet Recommendation: no restrictions on diet Diet Texture: Regular Texture Diet - Follow Up Care Current Providers and Referrals: Christina Andrew MD [Primary Care Provider] - Roland Barbosa MD [Medical Doctor] -
[2016-08-15] MEDS ORDERED: oxyCODONE IR 5 MG TAB PO PRN (14:35)
== END 2016-08-15 15:31 | disposition home health service (06) | DRG 460 ==
LOC: F3N 08:54 → F2N 18:19 → F3N 08-10 09:01
PROVIDERS: ADMIT Neurological Surgery; ATTEND Neurological Surgery
PROC: 0SB20ZZ Excision of Lumbar Vertebral Disc, Open Approach (ICD-10-PCS; principal; 2016-08-06 10:15)
PROC: 0SG1071 Fusion of 2 or more Lumbar Vertebral Joints with Autologous Tissue Substitute, Posterior Approach, Posterior Column, Open Approach (ICD-10-PCS; principal; 2016-08-06 10:15)
PROC: 0SG10AJ Fusion of 2 or more Lumbar Vertebral Joints with Interbody Fusion Device, Posterior Approach, Anterior Column, Open Approach (ICD-10-PCS; principal; 2016-08-06 10:15)
PROC: 00NY0ZZ Release Lumbar Spinal Cord, Open Approach (ICD-10-PCS; principal; 2016-08-06 10:15)
PROC: 3E0U0GB Introduction of Recombinant Bone Morphogenetic Protein into Joints, Open Approach (ICD-10-PCS; principal; 2016-08-06 10:15)
DX: M47.26 Other spondylosis with radiculopathy, lumbar region (principal); M51.36 Other intervertebral disc degeneration, lumbar region; M43.16 Spondylolisthesis, lumbar region; M43.17 Spondylolisthesis, lumbosacral region; M48.06 Spinal stenosis, lumbar region; M51.26 Other intervertebral disc displacement, lumbar region; I10 Essential (primary) hypertension; J45.909 Unspecified asthma, uncomplicated
CPT/HCPCS: 97116-GP; 97162-GP; 97166-GO; 97530-GP; 97535-GO; C1713; G8978-GP-CL; G8979-GP-CI; G8980-GP-CI; G8987-GO-CK; G8988-GO-CI; G8989-GO-CI; J0690; J1100; J1170; J1650; J2250; J2405; J2704; J3010

== ENCOUNTER 2016-08-28 15:35 | Emergency (ER) | payer OTHER, MEDICARE ==
--- NOTE | 2016-08-28 15:30 | EDPHY ---
H & P Time Seen by Provider: 08/28/16 15:41 HPI/ROS: CHIEF COMPLAINT: Constipation HISTORY OF PRESENT ILLNESS: This patient is a 71 year old female status 3-weeks post-lumbar fusion (08/06/2016) who presents to the Emergency Department complaining of persistent constipation secondary to pain medications. Her last bowel movement was 8 days prior to arrival. She has attempted to alleviate her constipation using [id number] Dulcolax stool softener since that time and used a suppository today at 1530 without improvement to her symptoms. She has not tried to use a suppository to soften stools. Upon arrival, she reports abdominal discomfort secondary to constipation. She also describes nausea with one episode of vomiting last night. She complains of mild back pain for which she continues to take prescribed pain medication. She has no additional complaints. REVIEW OF SYSTEMS: Constitutional: No fever, no chills Eyes: No visual changes ENT: No sore throat Respiratory: No cough, no shortness of breath Cardiac: No chest pain Gastrointestinal: +nausea, +constipation, +abdominal pain Genitourinary: No hematuria, no dysuria Musculoskeletal: No leg pain or swelling Skin: No rash, no wound discharge Neurological: No headache, no numbness, no weakness Psychiatric: No depression Past Medical/Surgical History: Spinal fusion on 08/06/3016. PCP: Dr. Christina Zhu with [facility] Social History: at bedside. Physical Exam: General Appearance: Alert, appears uncomfortable Eyes: Pupils equal and round, no conjunctival pallor or injection ENT, Mouth: Mucous membranes moist Neck: Normal inspection Respiratory: Lungs are clear to auscultation Cardiovascular: Regular rate and rhythm Gastrointestinal: Abdomen is soft and non-tender Neurological: A&O, nonfocal, normal gait Rectal: Hard brown stool Skin: Warm and dry, no rash Extremities: Nontender, no pedal edema Psychiatric: Mood and affect normal Constitutional: Initial Vital Signs Temperature (C) 36.5 C 08/28/16 15:44 Heart Rate 73 08/28/16 15:44 Respiratory Rate 17 08/28/16 15:44 Blood Pressure 155/86 H 08/28/16 15:44 O2 Sat (%) 98 08/28/16 15:44 O2 Delivery Mode Room Air Allergies/Adverse Reactions: No Known Allergies Allergy (Verified 08/28/16 15:43) Home Medications: Medication Instructions Recorded Ascorbic Acid [Vitamin C 500 mg 1,000 mg PO DAILY 07/09/16 (*)] Calcium Carbonate [Tums 500MG (*)] 1,000 mg PO BID 07/09/16 Cetirizine [ZyrTEC 10 mg (*)] 10 mg PO BID 07/09/16 FLUTICASONE/SALMETEROL [ADVAIR HFA 2 puffs IH BID 07/09/16 230-21 MCG INHALER] Gabapentin [Neurontin 300 MG (*)] 300 mg PO BID 07/09/16 Lisinopril [Zestril 20 mg (*)] 20 mg PO DAILY 07/09/16 Multivitamins [Multivitamin (*)] 1 each PO DAILY 07/09/16 guaiFENesin [Mucinex 600 MG (*)] 600 mg PO BID 07/09/16 HYDROcodone/APAP 10/325 [[place] 2 tab PO Q6H #90 tab 08/15/16 10/325 (*)] Methocarbamol [Robaxin 750 mg (*)] 750 mg PO QID PRN #60 tab 08/15/16 Sennosides/Docusate Sodium 1 - 2 tab PO BID #0 tab 08/15/16 [Senokot-S] morphINE SR [Ms Contin/Oramorph 15 15 mg PO TID #60 tab 08/15/16 mg (*)] Medical Decision Making Procedures: Procedure: Manual bowel disimpaction Indication: Constipation A manual bowel disimpaction was performed by myself for indication of constipation secondary to narcotic use. I was able to remove impacted hard, brown stool. The patient tolerated the procedure well. The procedure was performed by myself, Dr. Jimenez. ED Course/Re-evaluation: This 71 year old female presents with constipation secondary to narcotic use following lumbar spinal fusion performed earlier this month. She has been taking mluu-abm-yiznobe stool softeners without alleviation to her symptoms. On presentation, she appears uncomfortable. Abdominal exam is benign. Manual bowel disimpaction performed by myself (see procedure note). Soap suds enema administered in the ED for indication of constipation. 1717: On reevaluation, the patient reports that she has been unable to pass a bowel movement. Will administer 300ml PO Magnesium Citrate. She also complains of persistent nausea. 4mg PO Zofran administered. 1847: On reevaluation, the patient is feeling much better and eager to go home. Minimal BM after enema. WERO Riggins. I discussed with her methods for treating her constipation at home, including administration of Mag Citrate as needed. I will also give her Golytely. She expresses understanding of this and will be discharged home in good condition with PCP follow-up. Differential Diagnosis: Differential diagnosis includes though it is not limited to appendicitis, cholecystitis, diverticulitis, pyelonephritis, bowel perforation, small bowel obstruction. - Data Points Medications Given: Discontinued Medications Magnesium Citrate (Magnesium Citrate) 300 ml PO ONCE ONE Stop: 08/28/16 16:56 Last Admin: 08/28/16 17:25 Dose: 300 ml Ondansetron HCl (Zofran Odt) 4 mg PO EDNOW ONE Stop: 08/28/16 17:21 Last Admin: 08/28/16 17:25 Dose: 4 mg Departure - Departure Disposition: Home, Routine, Self-Care Clinical Impression: Constipation Qualifiers: Constipation type: drug induced constipation Qualified Code(s): K59.03 - Drug induced constipation Condition: Good Instructions: Constipation (ED), Abdominal Pain (ED) Additional Instructions: 1. Take GoLYTELY as we discussed for treatment of your constipation. 2. Should you experience severe constipation again, you may administer a Fleet enema at home to try to pass a bowel movement. If your constipation is not alleviated with the enema, return to the Emergency Department. 3. Return to the Emergency Department with severe back pain, discharge from your surgical wound, fever or chills, worsening constipation, or other serious concerns. Referrals: Christina Andrew MD [Primary Care Provider] - As per Instructions Report Scribed for: Keara Jimenez Report Scribed by: Licha Mcleod Date of Report: 08/28/16 Time of Report: 15:30 Physician Review and Approval Statement: 08/28/16 15:30 Portions of this note were transcribed by a medical affairs director. I personally performed a history, physical exam, medical decision making, and confirmed accuracy of information the transcribed note.
[2016-08-28 15:46] VITALS: TEMP 97.7
[2016-08-28] MEDS ORDERED: MAGNESIUM CITRATE 300 ML BOTTLE PO ONE (16:55)
[2016-08-28] MEDS ORDERED: ONDANSETRON DISINTEGRATING 4 MG TAB PO ONE (17:20)
[2016-08-28] MEDS ORDERED: ONDANSETRON 4 MG/2 ML VIAL IVP ONE (19:07)
[2016-08-28] MEDS ORDERED: ONDANSETRON 4MG PREPACK#2 BTL TAKEHOME ONE (19:19)
[2016-08-28] MEDS ORDERED: IOPAMIDOL (ISOVUE-300) 100 ML BTL IV ONE (20:21)
[2016-08-28 20:24] LABS: % IMMATURE GRANULYOCYTES 0.3 % (0.0-1.1); ABSOLUTE IMMATURE GRANULOCYTES 0.03 10^3/uL (0.00-0.10); ADD DIFF? NO; ADD MORPH? NO; ADD SCAN? NO; ATYPICAL LYMPHOCYTE FLAG 0 (0-99); FRAGMENT RBC FLAG 0 (0-99); HEMATOCRIT 39.3 % (38.0-47.0); HEMOGLOBIN 12.8 g/dL (12.6-16.3); LEFT SHIFT FLG 0 (0-99); LIPEMIA HEMOLYSIS FLAG 80 (0-99); MEAN CELL HEMOGLOBIN 31.1 pg (27.9-34.1); MEAN CELL HEMOGLOBIN CONCENTR. 32.6 g/dL (32.4-36.7); MEAN CELL VOLUME 95.4 fL (81.5-99.8); MEAN PLATELET VOLUME 9.8 fL (8.7-11.7); PLATELET CLUMPS FLAG 0 (0-99); PLATELET COUNT 465 10^3/uL (150-400); RED BLOOD CELL COUNT 4.12 10^6/uL (4.18-5.33); RED CELL DISTRIBUTION WIDTH 13.6 % (11.5-15.2)
[2016-08-28 20:31] LABS: ANION GAP 14 mEq/L (8-16); CARBON DIOXIDE 24 mEq/l (22-31); CHLORIDE 98 mEq/L (97-110); CREATININE 0.9 mg/dL (0.6-1.0); GLOMERULAR FILTRATION RATE > 60; GLUCOSE 122 mg/dL (70-100); POTASSIUM 4.6 mEq/L (3.5-5.2); SODIUM 136 mEq/L (134-144)
[2016-08-28] MEDS ORDERED: NS 1,000 ML IV ONE (20:32)
[2016-08-28 20:33] VITALS: PULSE 84
[2016-08-28] MEDS: GOLYTELY 4000 ML BTL PO ONE ×2 (20:33→21:10)
[2016-08-28 21:19] VITALS: BP 127/60; RESP 16; O2SAT 96
== END 2016-08-28 21:19 | disposition home or self-care (01) ==
LOC: EDUNIT#
DX: K59.03 Drug induced constipation (principal); T47.2X5A Adverse effect of stimulant laxatives, initial encounter
CPT/HCPCS: 74177; 96361; 96374; 99285; J2405; Q9967; 82947-QW

== ENCOUNTER → 2016-10-07 | Outpatient (CLI) | payer OTHER, MEDICARE | LOC: FIMAGING 10:51 | PROVIDERS: ATTEND Nurse Practitioner | DX: M43.16 Spondylolisthesis, lumbar region (principal); M47.896 Other spondylosis, lumbar region; M47.895 Other spondylosis, thoracolumbar region; Z98.1 Arthrodesis status ==

== ENCOUNTER → 2017-01-19 | Outpatient (CLI) | payer OTHER, MEDICARE | LOC: FIMAGING 15:42 | PROVIDERS: ATTEND Neurological Surgery | DX: M51.36 Other intervertebral disc degeneration, lumbar region (principal); M51.35 Other intervertebral disc degeneration, thoracolumbar region; M16.0 Bilateral primary osteoarthritis of hip; Z98.1 Arthrodesis status ==

== ENCOUNTER 2017-03-18 09:38 | Inpatient (IN) | payer OTHER, MEDICARE ==
--- NOTE | 2017-03-05 18:37 | GHP ---
[f rep st] PREOP HISTORY AND PHYSICAL DATE OF ADMISSION: 03/18/2017 She will be an a.m. admission for surgery at [facility] on March 18, 2017. PROBLEM: Right hip severe degenerative arthritis. HISTORY OF PRESENT ILLNESS: The patient is a 71-year-old woman admitted for a right total hip arthro plasty. She has had progressive pain in her right hip for several years. Recently it has been very severe. She uses a cane. She has trouble putting on her shoes and socks on the right side. She can not walk or stand for a prolonged period of time. She has some chronic low back problems. She under went an L2 through S1 lumbar fusion by Dr. Mack Barbosa in July of 2016. She has been using oxycodone regularly to control her back and hip pain. She is admitted for a right total hip arthroplasty. PAST MEDICAL HISTORY: She has asthma. Otherwise she is in good health. No history of heart disease , stents, DVT, hepatitis, or sleep apnea. CURRENT MEDICATIONS: She takes gabapentin to help with her chronic back pain. She is also on oxycod one regularly. She uses lisinopril for hypertension. DRUG ALLERGIES: She cannot take aspirin because of her asthma. She has been using Aleve to help wit h her hip and back pain. METAL ALLERGY: None. LATEX ALLERGY: None. SOCIAL HISTORY: The patient is . She does not smoke cigarettes and occasionally drinks alcoh ol. She is retired. FAMILY HISTORY: Positive for heart disease in her mother. PHYSICAL EXAMINATION: GENERAL: She is an alert, healthy-appearing elderly woman. Height 5 feet 8 i nches. Weight 178 pounds. BMI 27.1. HEENT: Eyes: The conjunctivae and sclerae are clear. Pupils are round and reactive. MOUTH: Good oral hygiene. No loose teeth. CHEST: Clear, no wheezing. HE ART: Regular rhythm, no murmurs. EXTREMITIES: Pertinent findings limited to her right hip. She has full hip extension and 90 degrees of flexion. As she flexes the hip, she develops a 10-degree framing manager al rotation contracture and has only 10 additional degrees of external rotation. Abduction 20 degree s. IMAGING: Her films show very severe degenerative arthritis of her right hip. She is [id number]. She has eroded a portion of her superior femoral head. She is approximately 1 cm short on the right. IMPRESSION ON ADMISSION: 1. Right hip severe degenerative arthritis. She is prepared for a right total hip arthroplasty. 2. Asthma. 3. Chronic lower back problems. Status post multilevel lumbar spine fusion in July of 2006. PLAN: She will undergo a right total hip arthroplasty. The surgery has been described to her and to her including the risks, complications, expectations, and recovery time. I have discussed w ith her the risk of dislocation, leg length inequality, infection, and sciatic nerve injury. She und erstands there is a risk of revision surgery in the future. I am going to be lengthening the leg bec ause of her preoperative shortening. She cannot take aspirin which is what I usually use for DVT prophylaxis. I will treat her with Segundo wallace for 14 days. All her questions have been answered, and she consents to surgery. /[id number]/MODL
[~2017-03-18 09:38] MED LIST changes: -CHLORHEXIDINE GLUC HIBICLENS 118 ML BTL TP ONE; +POVIDONE-IODINE 20 ML in SODIUM CL IRRIG SOLUTION 500 ML IRR ONE; +ROPIVACAINE 0.2% 80 MG, EPINEPHrine 0.2 MG, KETOROLAC TROMETHAMINE 30 MG in BAG 0 ML IU ONE; +TRANEXAMIC ACID 1,720 MG in NS 100 ML IV ONE; -ceFAZolin 2 GM/DEXTROSE 100 ML IV ONE
[2017-03-18] MEDS ORDERED: BUPIVACAINE 0.5% 30 ML SDV ONE (09:55)
[2017-03-18] MEDS ORDERED: ceFAZolin 2 GM/DEXTROSE 100 ML IV ONE (10:03)
[2017-03-18] MEDS ORDERED: FAMOTIDINE 20 MG TAB PO ONE (10:03)
[2017-03-18] MEDS ORDERED: ACETAMINOPHEN 325 MG TAB PO ONE (10:03)
[2017-03-18] MEDS ORDERED: DEXAMETHASONE 4 MG/ML VIAL IVP ONE (10:03)
[2017-03-18] MEDS ORDERED: LIDOCAINE 1% 2 ML INJ ID PRN (10:04)
[2017-03-18] MEDS ORDERED: LR 1,000 ML IV ONE (10:04)
--- NOTE | 2017-03-18 12:11 | PDHPUP ---
History & Physical Update H&P update statement: This history and physical update is based on an assessment of the patient which was completed after admission or registration (within 24 hours), but prior to the surgery/procedure. H&P update: H&P reviewed & patient examined, no change in patient's condition since H&P completed
[2017-03-18] MEDS ORDERED: NALOXONE HCL 0.4 MG/ML INJ IVP PRN ×2 (12:34→15:17)
[2017-03-18] MEDS ORDERED: ONDANSETRON 4 MG/2 ML VIAL IVP PRN ×2 (12:34→14:53)
[2017-03-18] MEDS ORDERED: fentaNYL 100 MCG/2 ML INJ IVP PRN ×2 (12:34→15:17)
[2017-03-18] MEDS ORDERED: ceFAZolin 1 GM/5 ML SYR ONE (12:38)
--- NOTE | 2017-03-18 12:43 | PDANEPAE ---
ANE History of Present Illness R Total hip arthroplasty ANE Past Medical History - Cardiovascular History Hx Hypertension: Yes Hx Arrhythmias: No Hx Chest Pain: No Hx Coronary Artery / Peripheral Vascular Disease: No Hx CHF / Valvular Disease: No Hx Palpitations: No Cardiovascular History Comment: pcp monitors bp meds - Pulmonary History Hx COPD: No Hx Asthma/Reactive Airway Disease: Yes Hx Recent Upper Respiratory Infection: No Hx Oxygen in Use at Home: No Hx Sleep Apnea: No Sleep Apnea Screening Result - Last Documented: Negative Pulmonary History Comment: asthma and allergies- uses inhaler- instructed pt to bring to hospital. biggest triggers are small airborne particles- smoke, perfumes, pollens,etc- comes on very fast - Neurologic History Hx Cerebrovascular Accident: No Hx Seizures: No Hx Dementia: No - Endocrine History Hx Diabetes: No Hypothyroid: No - Renal History Hx Renal Disorders: No - Liver History Hx Hepatic Disorders: No - Neurological & Psychiatric Hx Hx Neurological and Psychiatric Disorders: No - Cancer History Hx Cancer: No - Congenital Disorder History Hx Congenital Disorders: No - GI History GERD: no Hx Gastrointestinal Disorders: Yes Gastrointestinal History Comment: constipation with pain medications - Other Health History Other Health History: wears contacts - Chronic Pain History Chronic Pain: Yes (right hip) - Surgical History Prior Surgeries: 08/06/16 L2-3, 3-4, 4-5 TLIF with Familia. t&a at 5 yo. c- section ANE Review of Systems Review of Systems: - Exercise capacity METS (RN): 4 METS ANE Patient History - Allergies Allergies/Adverse Reactions: No Known Allergies Allergy (Verified 08/28/16 15:43) - Home Medications Home Medications: FLUTICASONE/SALMETEROL [ADVAIR HFA 230-21 MCG INHALER] 2 puffs IH BID 07/09/16 [ Last Taken 03/17/17 23:00] Gabapentin [Neurontin 300 MG (*)] 300 mg PO BID 07/09/16 [Last Taken 03/17/17 03 :00] Lisinopril [Zestril 20 mg (*)] 20 mg PO DAILY 07/09/16 [Last Taken 03/17/17 08: 00] Naproxen Sodium [Aleve 220 MG (*)] 220 mg PO TID PRN 02/10/17 [Last Taken ] oxyCODONE IR [Oxycodone Ir (*)] 5 mg PO DAILY PRN 02/10/17 [Last Taken 03/18/17 03:00] - NPO status NPO Since - Liquids (Date): 03/17/17 NPO Since - Liquids (Time): 23:00 NPO Since - Solids (Date): 03/17/17 NPO Since - Solids (Time): 19:00 - Anes Hx Anes Hx: no prior problems - Smoking Hx Smoking Status: Never smoked - Family Anes Hx Family Anes Hx: none Family Hx Anesthesia Complications: none ANE Labs/Vital Signs - Vital Signs Blood Pressure: 163/74 Heart Rate: 62 Respiratory Rate: 16 O2 Sat (%): 96 Height: 172.72 cm Weight: 86.2 kg ANE Physical Exam - Airway Mallampati Score: Class 1 Mouth exam: normal dental/mouth exam (Upper caps) - Pulmonary Pulmonary: clear to auscultation - Cardiovascular Cardiovascular: regular rate and rhythym ANE Anesthesia Plan Anesthesia Plan: general endotracheal anesthesia (patient is s/p L2-5 fusion and instrumentation. She agrees to proceed.)
[2017-03-18] MEDS ORDERED: MIDAZOLAM 2 MG/2 ML VIAL ONE (12:44)
[2017-03-18] MEDS ORDERED: MIDAZOLAM 2 MG/2 ML VIAL IVP ONE (12:46)
[2017-03-18] MEDS ORDERED: DEXAMETHASONE 4 MG/ML VIAL ONE (12:55)
[2017-03-18] MEDS ORDERED: fentaNYL 250 MCG/5 ML INJ ONE (12:55)
[2017-03-18] MEDS ORDERED: PROPOFOL 200 MG/20 ML VIAL ONE (12:55)
[2017-03-18] MEDS ORDERED: ROCURONIUM 50 MG/5 ML VIAL ONE ×2 (12:55→13:59)
[2017-03-18] MEDS ORDERED: HYDROmorphONE/DILAUDID 2 MG/ML INJ ONE (13:11)
[2017-03-18] MEDS ORDERED: KETAMINE 100 MG/10 ML SYR ONE (13:29)
[2017-03-18] MEDS ORDERED: PHENYLEPHRINE HCL 100 MCG/ML SYR ONE (14:14)
[2017-03-18] MEDS ORDERED: ONDANSETRON 4 MG/2 ML VIAL ONE (14:28)
[2017-03-18] MEDS ORDERED: GLYCOPYRROLATE 0.2 MG/1 ML VIAL ONE (14:29)
[2017-03-18] MEDS ORDERED: NEOSTIGMINE METHYLSULFATE 3 MG/3 ML SYR ONE (14:29)
[2017-03-18] MEDS ORDERED: ONDANSETRON DISINTEGRATING 4 MG TAB PO PRN (14:53)
[2017-03-18] MEDS ORDERED: LACTULOSE 20 GM/30 ML UDCUP PO PRN (14:53)
[2017-03-18] MEDS ORDERED: PROMETHAZINE HCL 25 MG SUPPR PR PRN (14:53)
[2017-03-18] MEDS ORDERED: diphenhydrAMINE 25 MG CAP PO PRN (14:53)
[2017-03-18] MEDS ORDERED: KETOROLAC 30 MG/1 ML SDV IVP PRN (14:53)
[2017-03-18] MEDS ORDERED: BISACODYL 10 MG SUPP PR PRN (14:53)
[2017-03-18] MEDS ORDERED: TEMAZEPAM 15 MG CAP PO PRN (14:53)
[2017-03-18] MEDS ORDERED: DIPHENOXYLATE/ATROPINE LOMOTIL 1 TAB PO PRN (14:53)
[2017-03-18] MEDS ORDERED: PROMETHAZINE HCL 25 MG/ML INJ IVP PRN (14:53)
[2017-03-18] MEDS ORDERED: CYCLOBENZAPRINE 10 MG TAB PO PRN (14:53)
[2017-03-18] MEDS ORDERED: traMADol 50 MG TAB PO PRN (14:53)
[2017-03-18] MEDS ORDERED: METOCLOPRAMIDE 10 MG/2 ML VIAL IVP PRN (14:53)
[2017-03-18] MEDS ORDERED: POLYETHYLENE GLYCOL 3350 17 GM PKT PO PRN (14:53)
[2017-03-18] MEDS ORDERED: MAGNESIUM HYDROXIDE 30 ML UDCUP PO PRN (14:53)
--- NOTE | 2017-03-18 14:53 | POSTOPPROG ---
Post Op Note Date of Operation: 03/18/17 Surgeon: Cesar Griffith Cash Management Associate: Teofilo Macdonald/Abiola Cheng Anesthesiologist: Marshal Ballard Anesthesia: GET(General Endotracheal) Post-op Diagnosis: right hip severe degenerative arthritis. Procedure: Right total hip arthroplasty. Ceramic on highly crosslink polyethylene Inf/Abcess present in the surg proc area at time of surgery?: No EBL: [id number]
[2017-03-18] MEDS ORDERED: LR 1,000 ML IV SCH (15:00)
[2017-03-18] MEDS ORDERED: fentaNYL 100 MCG/2 ML INJ ONE (15:26)
[2017-03-18 16:12] VITALS: RESP 16
--- NOTE | 2017-03-18 16:53 | POSTANESTH ---
Post Anesthetic Evaluation Cardiovascular Status: Similar to Pre-Op Cond Respiratory Status: Similar to Pre-op Cond. Level of Consciousness/Mental Status: Can Participate in Eval Pain Control: Adequate, Prn Tx Ordered Nausea/Vomiting Control: Adequate, Prn Tx Ordered Complications Possibly Related to Anesthesia: None Noted
[2017-03-18] MEDS: ACETAMINOPHEN 325 MG TAB PO SCH ×2 (17:34→23:35)
[2017-03-18] MEDS: oxyCODONE IR 5 MG TAB PO PRN ×2 (17:35→22:23)
[2017-03-18] MEDS: ceFAZolin 2 GM in D5W 100 ML IV SCH (20:15)
[2017-03-18] MEDS: SENNOSIDES/DOCUSATE SODIUM TAB PO SCH (20:17)
[2017-03-18] MEDS: FAMOTIDINE 20 MG TAB PO SCH (20:18)
[2017-03-18] MEDS: ASPIRIN 325 MG TAB PO SCH (20:18)
[2017-03-18] MEDS: GABAPENTIN 300 MG CAP PO SCH (20:18)
[2017-03-18 20:57] VITALS: TEMP 98.2
--- NOTE | 2017-03-18 20:58 | GOP ---
[f rep st] OPERATIVE REPORT DATE OF OPERATION: 03/18/2017 SURGEON: Cesar Griffith MD RECREATION FACILITY MANAGER: Teofilo Macdonald and Abiola Cheng. ANESTHESIA: General. ANESTHESIOLOGIST: Dr. Marshal Barlow. PREOPERATIVE DIAGNOSIS: Right hip severe degenerative arthritis. POSTOPERATIVE DIAGNOSIS: Right hip severe degenerative arthritis. PROCEDURE PERFORMED: Right total hip arthroplasty, ceramic femoral head on highly cross-linked polyethylene cup liner. FINDINGS: ESTIMATED BLOOD LOSS: About 300 mL. DESCRIPTION OF PROCEDURE: The patient was given 2 g of IV Ancef preoperatively within 60 minutes of surgery. She also received IV tranexamic acid at a dose of 20 mg/kg. She was placed on the operating room table and given general anesthesia by Dr. Marshal Barlow. A Peña catheter was not used. She wore a KATHE stocking and SCD on the nonoperative leg. She was rolled to the left lateral decubitus position. The position was secured with the pegboard table attachment. An axillary roll was used, and all pressure points were carefully padded. I was careful to lock her pelvis in a vertical position. She was a large woman and that made positioning difficult. Her perineum was isolated with plastic adhesive drapes. The right hip and right lower extremity were prepped with ChloraPrep. They were draped free using sterile sheets, stockinette, and Ioban plastic drapes. The [employer] time-out was performed to verify the correct surgical side and site and the correct patient identity. The [facility] time-out was also performed. I made a 6-inch straight oblique posterolateral hip skin incision. Subcutaneous tissues were sharply divided, and hemostasis was obtained using electrocautery. Her layer of subcutaneous fat was approximately 3 inches deep. Her fascia keny was identified and split along the axis of its fibers. I curved posteriorly and proximally, and split the fascia of gluteus apple and bluntly split the muscle fibers in line with their orientation. The Charnley self-retaining retractor was inserted. Her sciatic nerve was located, partially exposed, and protected throughout the procedure. The external rotators and the posterior hip capsule were divided as separate layers at the base of the femoral neck, tagged, and reflected posteriorly. A smooth 8-inch Steinmann pin was inserted vertically into the ilium, superior to the acetabulum. An 8-inch drill bit was inserted vertically into the greater trochanter and parallel to the first pin. The distance between the 2 was measured for leg length reference. Her femoral head was dislocated posteriorly. Severe degenerative changes were present on the head. The femoral neck was osteotomized at the appropriate level and inclination. I was careful to preserve all the posterior capsule and most of the anterior capsule. The remnant of her damaged labrum was excised. I prepared the femur first. This allowed me to circuit court judge the amount of natural femoral neck anteversion. This, in turn, allowed me to later determine the correct amount of cup anteversion. She had approximately 10 degrees of natural femoral neck anteversion. Her canal was opened laterally with a box chisel. I hand broached sequentially up to a size 6. I used the Accolade 2 size 6 broach as a trial stem. I was careful to lateralize adequately. Appropriate retractors were inserted to expose the acetabulum. The acetabulum was reamed sequentially up to 51 mm. I selected a 52 mm titanium solid backed hemispherical shell. This was tapped securely into place in the proper degree of inclination anteversion. I used the transverse acetabular ligament and other acetabular bony landmarks to help me properly orient the cup. I inserted a screw-in metal dome hole plug. She had some superior and anterior periacetabular osteophytes which I removed with an osteotome and a rongeur. I performed a series of trial reductions to determine length and stability. I concluded that the size 6 stem with a high offset and a 0 neck length with a 32 mm head and a 10 degree lipped acetabular liner gave me the proper combination of appropriate length and good anterior and posterior stability. She was approximately 5 mm short preoperatively, and I was intentionally lengthening her. To confirm proper sizing of the implants and confirmation of leg lengths, I took an intra operative cross table AP pelvis x-ray. I was satisfied with the results. The 0 degree Fairborn X3 highly cross-linked polyethylene liner was inserted and tapped securely into place. I selected the Serene Accolade 2 stem in a size 6 with high offset. This was inserted press-fit and was very tight. I did 1 final trial reduction and confirmed that the 0 neck length with a 32 mm head was the proper combination. I recognized that I might be over lengthening her by a couple of mm, however I felt that this was necessary in order to achieve the desired stability. I selected the Fairborn Biolox Delta ceramic head with an outside diameter of 32 mm and a neck length of 0 mm. The head was tapped securely onto the clean trunnion. The acetabulum was irrigated, cleaned, and the hip was reduced 1 final time. She had excellent anterior and posterior stability and appropriate length. 40 mL of the joint anesthetic cocktail were injected into the capsule, the deep musculature, and the subcutaneous tissues around the skin edges. The joint was thoroughly irrigated 1 final time with a dilute Betadine solution. Her sciatic nerve was reinspected and looked unharmed. The external rotators and the posterior hip capsule were repaired in separate layers with #2 FiberWire sutures through drill holes in the greater trochanter. This provided a strong posterior capsular and external rotator repair. The fascia keny was closed first with a couple of interrupted [id number] #2 FiberWire sutures followed by a running #2 barbed Ethicon Stratafix PDO suture. The subcutaneous tissues were closed first using interrupted 2-0 Monocryl sutures followed by a running 0 barbed Ethicon Stratafix Monoderm suture. The skin was closed with a running 3-0 barbed Ethicon Stratafix Monoderm subcuticular suture. The skin edges were reapproximated and sealed with Dermabond glue. The wound was covered with a strip of Telfa, and everything was held in place with a piece of clear plastic Tegaderm. A long-leg KATHE stocking and SCD were applied to her right lower extremity. She wore a stocking and SCD on the opposite leg during the procedure. An abduction pillow was placed between her knees. She was awakened from anesthesia and rolled to the [facility] She was taken to PACU in satisfactory condition. COMPLICATIONS: There were no recognized intraoperative complications. COUNTS: The sponge and needle count were correct on 2 occasions. IMPLANTS: I used a Serene Tritanium hemispherical solid-backed acetabular shell with an outside diameter of 52 mm. The liner was a Fairborn X3, 0-degree highly cross-linked liner with an inside diameter of 32 mm. The femoral component was a press-fit Serene Accolade 2 stem with a high offset in size 6. The femoral head was a Serene Biolox Delta ceramic head with a 0 neck length and a 32 mm outside diameter. Teofilo Macdonald and Abiola Cheng acted as surgical first assistants. Their assistance was a medical necessity for safe completion of the procedure. /[id number]/MODL MTDD
[2017-03-18] MEDS ORDERED: ceFAZolin 2 GM/DEXTROSE 100 ML IV SCH (22:00)
[2017-03-19] MEDS: Fluticasone/Salmeterol [Advair Hfa 230-21 Mcg Inhaler] 2 PUFFS IH SCH ×2 (00:10→09:24)
[2017-03-19] MEDS: oxyCODONE IR 5 MG TAB PO PRN ×2 (05:32→10:47)
[2017-03-19] MEDS: ACETAMINOPHEN 325 MG TAB PO SCH (05:32)
[2017-03-19] MEDS: ceFAZolin 2 GM in D5W 100 ML IV SCH (05:32)
[2017-03-19 05:49] LABS: HEMATOCRIT 32.6 % (38.0-47.0); HEMOGLOBIN 10.8 g/dL (12.6-16.3)
--- NOTE | 2017-03-19 07:26 | SOAPPROG ---
SOAP Progress Note Assessment/Plan: Assessment: Afebrile. Awake and alert. Moderate pain. She has been walking in the room. Her dressing is dry. Hemoglobin and hematocrit are good. Sciatic nerve is intact. Postop films look excellent. Plan: Up with physical therapy today. Discharged later today. I will use Lovenox for DVT prophylaxis. 03/19/17 07:25 Objective: Vital Signs Temp Pulse Resp BP Pulse Ox 36.8 C 85 16 123/50 H 98 03/19/17 04:00 03/19/17 04:00 03/19/17 04:00 03/19/17 04:00 03/19/17 04:00 Laboratory Results 03/19/17 05:18 03/18/17 03/19/17 03/20/17 05:59 05:59 05:59 Intake Total 1590 Output Total 300 Balance 1290 ICD10 Worksheet Patient Problems: Problems Problem Status Onset Osteoarthritis of right hip Acute Arthrodesis status Acute Lumbar radicular pain Acute Lumbar stenosis Acute
--- NOTE | 2017-03-19 07:50 | GDS ---
[f rep st] DISCHARGE SUMMARY ADMISSION DIAGNOSIS: Right hip arthritis. DISCHARGE DIAGNOSIS: Right hip arthritis. OPERATION PERFORMED: 03/18/2017, right total hip arthroplasty. POSTOPERATIVE COMPLICATIONS: None. CONDITION ON DISCHARGE: Improved. DESCRIPTION OF HOSPITAL COURSE: The patient was admitted to the hospital on the morning of surgery. Her admission CBC, electrolytes, BUN, and creatinine were all normal. The same day, under general a nesthesia, she underwent a right total hip arthroplasty. Postoperatively, she was treated with multi modal DVT prophylaxis, including Lovenox and early mobilization. On the first postoperative day, her hemoglobin and hematocrit were 10.8 and 32.6. She was seen by Physical Therapy and made good progre ss with ambulation and stairs. By the time of discharge, she was afebrile, her wound was and dry, an d she was independent walking with a walker. DISPOSITION: She is discharged to her home. She may progress to full weightbearing on the right as tolerated. Use an abduction pillow in bed for 3 weeks. Use KATHE stockings for 1 week. Continue Love nox 40 mg subcu for 14 days. She will go to outpatient physical therapy. I will see her back in the office on April 06, 2017. If there are any problems, she is to call me at the office. /[id number]/MODL
[2017-03-19 08:16] VITALS: BP 133/62; PULSE 76; O2SAT 96
[2017-03-19] MEDS: SENNOSIDES/DOCUSATE SODIUM TAB PO SCH (08:51)
[2017-03-19] MEDS: ASPIRIN 325 MG TAB PO SCH (08:51)
[2017-03-19] MEDS: FAMOTIDINE 20 MG TAB PO SCH (08:52)
[2017-03-19] MEDS: GABAPENTIN 300 MG CAP PO SCH (08:52)
[2017-03-19] MEDS ORDERED: LISINOPRIL 20 MG TAB PO SCH (09:00)
[2017-03-19] MEDS ORDERED: ENOXAPARIN 40 MG/0.4 ML SYR SC SCH (09:00)
[2017-03-19] MEDS ORDERED: FERROUS SULFATE 140 MG TAB.ER PO SCH (09:00)
--- NOTE | 2017-03-19 11:34 | ASDISCHSUM ---
Discharge Information Plan Status:Home with No Needs Medically Cleared to Leave: Discharge Date:03/19/2017 11:27 AM CM D/C Disposition:Home, Routine, Self-Care ADT D/C Disposition:Home, Routine, Self-Care Projected Discharge Date:03/19/2017 11:27 AM Transportation at D/C: Discharge Delay Reason: Follow-Up Date:03/19/2017 11:27 AM Discharge Slot: Final Diagnosis: Placement Information Patient Contact Information Contact Name:LEXUS Relationship: Address:[address] City:[place] Alternate Phone: [facility]/Zip Code:[place] [address] Email: Financial Information Financial Class: Primary Plan Desc:MEDICARE INPATIENT Primary Plan Number:[id number] Secondary Plan Desc:[employer]/MDR SUPPLEMENT Secondary Plan Number:[id number] Assessment Information [facility] CM Progress Note CM Note CM Note Notes: Pt medically stable for d/c, no CM d/c needs identified. Date Signed: 03/19/2017 11:34 AM Electronically Signed By:YOGESH Acosta Intervention Information
== END 2017-03-19 11:27 | disposition home or self-care (01) | DRG 470 ==
LOC: F3N 09:38
PROVIDERS: ADMIT Orthopaedic Surgery; ATTEND Orthopaedic Surgery
PROC: 0SR904Z Replacement of Right Hip Joint with Ceramic on Polyethylene Synthetic Substitute, Open Approach (ICD-10-PCS; principal; 2017-03-18 12:00)
DX: M16.11 Unilateral primary osteoarthritis, right hip (principal); J45.909 Unspecified asthma, uncomplicated; I10 Essential (primary) hypertension; Z98.1 Arthrodesis status
CPT/HCPCS: 97116-GP; 97161-GP; 97165-GO; G8978-GP-CI; G8979-GP-CI; G8980-GP-CI; G8987-GO-CI; G8988-GO-CI; G8989-GO-CI; J0171; J0690; J1100; J1170; J1650; J1885; J2250; J2370; J2405; J2704; J2710; J2795; J3010

== ENCOUNTER → 2017-05-11 | Outpatient (CLI) | payer OTHER, MEDICARE | LOC: FIMAGING 09:42 | PROVIDERS: ATTEND Physician Assistant | DX: M47.895 Other spondylosis, thoracolumbar region (principal); M51.26 Other intervertebral disc displacement, lumbar region; M16.12 Unilateral primary osteoarthritis, left hip; Z98.1 Arthrodesis status ==

== ENCOUNTER → 2017-10-08 | Outpatient (CLI) | payer OTHER, MEDICARE | LOC: FIMAGING 15:52 | PROVIDERS: ATTEND Physician Assistant | DX: Z98.1 Arthrodesis status (principal); M25.551 Pain in right hip; M51.35 Other intervertebral disc degeneration, thoracolumbar region; M51.36 Other intervertebral disc degeneration, lumbar region ==

== ENCOUNTER → 2018-08-06 | Outpatient (CLI) | payer OTHER, MEDICARE | LOC: FIMAGING 10:17 | PROVIDERS: ATTEND Physician Assistant | DX: Z09 Encounter for follow-up examination after completed treatment for conditions other than malignant neoplasm (principal); M54.5 Low back pain; Z98.1 Arthrodesis status ==

== ENCOUNTER 2018-09-21 07:59 | Inpatient (IN) | payer OTHER, MEDICARE ==
--- NOTE | 2018-09-20 09:18 | GHP ---
[f rep st] PREOP HISTORY AND PHYSICAL She will be an outpatient [facility] on September 21. PROBLEM: Left hip arthritis. HISTORY OF PRESENT ILLNESS: The patient is a 73-year-old woman admitted for a left total hip arthrop lasty. She has had progressive pain in her left hip over the past few years. Recently it has been m uch more painful. It is difficult for her to walk. She is having daily pain. Her activities are li mited. I did her right total hip arthroplasty in March of 2017 with an excellent result. She has also had a previous lumbosacral spine fusion in [address] Mack Barbosa. I am also treating her for severe de generative arthritis in her left knee. PAST MEDICAL HISTORY: She is treated for asthma and hypertension. No history of heart disease, sten ts, DVT, hepatitis, MRSA staph infections, sleep apnea or hereditary bleeding disorders. CURRENT MEDICATIONS: 1. Advair inhaler p.r.n. She rarely has asthma attacks. 2. Gabapentin 300 mg a day for some chronic back pain. 3. Lisinopril 20 mg per day for hypertension. DRUG ALLERGIES: She cannot tolerate aspirin because of her asthma. Metal allergy: None. Latex all ergy: None. SOCIAL HISTORY: The patient is . She is retired. She does not smoke cigarettes and occasion ally drinks alcohol. PHYSICAL EXAMINATION: VITAL SIGNS: Height 5 feet 8 inches. Weight 178 pounds. BMI 27.1. EYES: T he conjunctivae and sclerae are clear. MOUTH: Good oral hygiene. No loose teeth. CHEST: Clear. HEART: Regular rhythm. No murmurs. EXTREMITIES: Pertinent findings limited to her left hip. She has full hip extension and 100 degrees of flexion. External rotation 20 degrees. Internal rotation 0 degrees. Abduction 20 degrees. IMAGING: Films show severe degenerative arthritis of the left hip. She is [id number]-bs-[id number]. She is sami roximately 7 or 8 mm short. She has hardware in her lumbosacral spine. IMPRESSION ON ADMISSION: 1. Left hip advanced degenerative arthritis. She will undergo a left total hip arthroplasty. 2. Status post right total hip arthroplasty with an excellent result. 3. Status post multilevel lower lumbar fusion. 4. Treatment for hypertension. 5. Treatment for asthma. She cannot take aspirin. PLAN: She will undergo a left total hip arthroplasty. The surgery has been described to her includi ng the risks, complications, expectations and recovery time. I have explained to her the risk of leg length inequality and dislocation. I have also advised her that the previous lumbar spine fusion in creases her risk of dislocation. However, I will be intentionally lengthening her to try to make her legs equal which will increase her stability. I have also discussed with her the risk of infection and sciatic nerve injury. All her questions were answered and she consents to surgery. /[id number]/MODL
--- NOTE | 2018-09-21 07:52 | POSTANESTH ---
Post Anesthetic Evaluation Cardiovascular Status: Normal, Stable Respiratory Status: Normal, Stable Level of Consciousness/Mental Status: Can Participate in Eval, Mildly Sleepy, Arousable Pain Control: Adequate, Prn Tx Ordered Nausea/Vomiting Control: Adequate, Prn Tx Ordered Complications Possibly Related to Anesthesia: None Noted Notes: Moving both feet at this time, but no pain in hip.
--- NOTE | 2018-09-21 07:55 | PDANEPAE ---
ANE History of Present Illness 73 yo female with OA for L VIVIAN. ANE Past Medical History - Cardiovascular History Hx Hypertension: Yes Hx Arrhythmias: No Hx Chest Pain: No Hx Coronary Artery / Peripheral Vascular Disease: No Hx CHF / Valvular Disease: No Hx Palpitations: No Cardiovascular History Comment: hypertriglyceridemia per 2017 labs - Pulmonary History Hx COPD: No Hx Asthma/Reactive Airway Disease: Yes Hx Recent Upper Respiratory Infection: No Hx Oxygen in Use at Home: No Hx Sleep Apnea: No Sleep Apnea Screening Result - Last Documented: Negative Pulmonary History Comment: asthma-ENVIRONMENTAL TRIGGERS - last albuterol use months ago - Neurologic History Hx Cerebrovascular Accident: No Hx Seizures: No Hx Dementia: No - Endocrine History Hx Diabetes: No Hypothyroid: No Hyperthyroid: No Obesity: no - Renal History Hx Renal Disorders: No - Liver History Hx Hepatic Disorders: No - Neurological & Psychiatric Hx Hx Neurological and Psychiatric Disorders: No - Cancer History Hx Cancer: No - Congenital Disorder History Hx Congenital Disorders: No - GI History Hx Gastrointestinal Disorders: No Gastrointestinal History Comment: constipation with pain medications - Other Health History Other Health History: OSTEOARTHRITIS. wears contacts - Chronic Pain History Chronic Pain: Yes (LT HIP) - Surgical History Prior Surgeries: RT TOTAL HIP 03/18/17. LIMBAR FUSION L2-5. T&A ANE Review of Systems Review of Systems: - Exercise capacity METS (RN): 4 METS - Systems Constitutional: Reports: no symptoms Cardiac: Reports: no symptoms Respiratory: Reports: no symptoms ANE Patient History - Allergies Allergies/Adverse Reactions: No Known Allergies Allergy (Verified 08/28/16 15:43) - Home Medications Home Medications: Gabapentin [Neurontin 300 MG (*)] 300 mg PO TID 07/09/16 [Last Taken 09/21/18 06 :40] Naproxen Sodium [Aleve 220 MG (*)] 220 mg PO TID PRN 02/10/17 [Last Taken 07:00] Lisinopril [Zestril 10 mg (*)] 10 mg PO DAILY 09/20/18 [Last Taken 09/20/18] - NPO status NPO Since - Liquids (Date): 09/21/18 NPO Since - Liquids (Time): 06:40 (sips to take AM meds) NPO Since - Solids (Date): 09/20/18 - Anes Hx Anes Hx: no prior problems - Smoking Hx Smoking Status: Never smoked - Family Anes Hx Family Anes Hx: neg - N/A Family Hx Anesthesia Complications: none ANE Labs/Vital Signs - Vital Signs Blood Pressure: 168/72 (pt took her lisinopril last night) Heart Rate: 71 O2 Sat (%): 95 Height: 170.18 cm Weight: 81.647 kg ANE Physical Exam - Airway Neck exam: FROM Mallampati Score: Class 2 - Pulmonary Pulmonary: clear to auscultation - Cardiovascular Cardiovascular: regular rate and rhythym - ASA Status ASA Status: II ANE Anesthesia Plan Anesthesia Plan: spinal
[~2018-09-21 07:59] MED LIST changes: -ROPIVACAINE 0.2% 80 MG, EPINEPHrine 0.2 MG, KETOROLAC TROMETHAMINE 30 MG in BAG 0 ML IU ONE; +ROPIVACAINE 0.2% 80 MG, EPINEPHrine 0.2 MG, KETOROLAC TROMETHAMINE 30 MG in SYRINGE 0 ML IU ONE; +TRANEXAMIC ACID 1,000 MG in NS 100 ML IV ONE; -TRANEXAMIC ACID 1,720 MG in NS 100 ML IV ONE; +TRANEXAMIC ACID 3,000 MG in NS (SYRINGE) 50 ML IRR ONE
[2018-09-21] MEDS ORDERED: ceFAZolin 2 GM/DEXTROSE 100 ML IV ONE (08:07)
[2018-09-21] MEDS ORDERED: FAMOTIDINE 20 MG TAB PO ONE (08:07)
[2018-09-21] MEDS ORDERED: DEXAMETHASONE 4 MG/ML VIAL IVP ONE (08:07)
[2018-09-21] MEDS ORDERED: ONDANSETRON 4 MG/2 ML VIAL IVP ONE (08:07)
[2018-09-21] MEDS ORDERED: ACETAMINOPHEN 325 MG TAB PO ONE (08:07)
[2018-09-21] MEDS ORDERED: GABAPENTIN 300 MG CAP PO ONE (08:07)
[2018-09-21] MEDS ORDERED: LR 1,000 ML IV ONE (08:08)
[2018-09-21] MEDS ORDERED: TRANEXAMIC ACID 3,000 MG/50 ML BAG IRR ONE (08:52)
[2018-09-21] MEDS ORDERED: ceFAZolin 1 GM/5 ML SYR ONE (08:52)
[2018-09-21] MEDS ORDERED: ceFAZolin 1 GM VIAL ONE (08:53)
--- NOTE | 2018-09-21 09:27 | PDHPUP ---
History & Physical Update H&P update statement: This history and physical update is based on an assessment of the patient which was completed after admission or registration (within 24 hours), but prior to the surgery/procedure. H&P update: H&P reviewed & patient examined
[2018-09-21] MEDS ORDERED: LIDOCAINE 2% 5 ML SDV ONE (09:49)
[2018-09-21] MEDS ORDERED: fentaNYL 100 MCG/2 ML INJ ONE (09:49)
[2018-09-21] MEDS ORDERED: PROPOFOL/EMULSION 500 MG/50 ML BOTTLE IV ONE (09:51)
[2018-09-21] MEDS ORDERED: VASOPRESSIN 20 UNIT/ML VIAL ONE (10:13)
[2018-09-21] MEDS ORDERED: NALOXONE HCL 0.4 MG/ML INJ IVP PRN (11:25)
[2018-09-21] MEDS ORDERED: LABETALOL HCL 5 MG/ML 20 ML MDV IVP PRN (11:25)
[2018-09-21] MEDS ORDERED: ACETAMINOPHEN 500 MG TAB PO PRN (11:25)
[2018-09-21] MEDS ORDERED: ALBUTEROL 3 ML DEYVIAL IH PRN (11:25)
[2018-09-21] MEDS ORDERED: fentaNYL 100 MCG/2 ML INJ IVP PRN (11:25)
[2018-09-21] MEDS ORDERED: PROMETHAZINE HCL 25 MG/ML INJ IVP PRN ×2 (11:25→11:48)
[2018-09-21] MEDS ORDERED: oxyCODONE IR 5 MG TAB PO PRN ×2 (11:25→11:48)
[2018-09-21] MEDS ORDERED: LR 250 ML IV PRN (11:25)
[2018-09-21] MEDS ORDERED: ePHEDrine SULFATE 25 MG/5 ML SYR ONE (11:32)
--- NOTE | 2018-09-21 11:33 | POSTOPPROG ---
Post Op Note Date of Operation: 09/21/18 Surgeon: Cesar Griffith Tax Technician: Martin/Torres Anesthesiologist: Dr. Yoselin Russell Post-op Diagnosis: Left hip severe degenerative arthritis Procedure: Left total hip arthroplasty Inf/Abcess present in the surg proc area at time of surgery?: No EBL: [id number]
[2018-09-21] MEDS ORDERED: METOCLOPRAMIDE 10 MG/2 ML VIAL IVP PRN (11:48)
[2018-09-21] MEDS ORDERED: NS 500 ML IV PRN (11:48)
[2018-09-21] MEDS ORDERED: diphenhydrAMINE 25 MG CAP PO PRN (11:48)
[2018-09-21] MEDS ORDERED: CYCLOBENZAPRINE 10 MG TAB PO PRN (11:48)
[2018-09-21] MEDS ORDERED: traMADol 50 MG TAB PO PRN (11:48)
[2018-09-21] MEDS ORDERED: POLYETHYLENE GLYCOL 3350 17 GM PKT PO PRN (11:48)
[2018-09-21] MEDS ORDERED: DIPHENOXYLATE/ATROPINE LOMOTIL 1 TAB PO PRN (11:48)
[2018-09-21] MEDS ORDERED: PROMETHAZINE HCL 25 MG SUPPR PR PRN (11:48)
[2018-09-21] MEDS ORDERED: LACTULOSE 20 GM/30 ML UDCUP PO PRN (11:48)
[2018-09-21] MEDS ORDERED: ONDANSETRON DISINTEGRATING 4 MG TAB PO PRN (11:48)
[2018-09-21] MEDS ORDERED: BISACODYL 10 MG SUPP PR PRN (11:48)
[2018-09-21] MEDS ORDERED: TEMAZEPAM 15 MG CAP PO PRN (11:48)
[2018-09-21] MEDS ORDERED: ONDANSETRON 4 MG/2 ML VIAL IVP PRN (11:48)
[2018-09-21] MEDS ORDERED: MAGNESIUM HYDROXIDE 30 ML UDCUP PO PRN (11:48)
--- NOTE | 2018-09-21 11:58 | PDMN ---
Medical Necessity Medical necessity: [facility] S560 Hip Arthroplasty, A-2 days: 73 yo s/p L VIVIAN, [facility] IP only
[2018-09-21] MEDS ORDERED: KETOROLAC 15 MG/1 ML SDV IVP SCH (12:00)
[2018-09-21] MEDS ORDERED: LR 1,000 ML IV SCH (12:00)
--- NOTE | 2018-09-21 12:17 | GOP ---
[f rep st] OPERATIVE REPORT DATE OF OPERATION: 09/21/2018 SURGEON: Cesar Griffith MD BRAND SPECIALIST: 1. Kameron Salazar, PAC. 2. Teofilo Macdonald CFA. ANESTHESIA: Combination of Marcaine, spinal and IV sedation. ANESTHESIOLOGIST: Yoselin Russell MD. PREOPERATIVE DIAGNOSIS: Left hip arthritis postop diagnosis. POSTOPERATIVE DIAGNOSIS: Left hip arthritis postop diagnosis. PROCEDURE PERFORMED: 09/21/2018, a left total hip arthroplasty, ceramic femoral head on highly cross -linked polyethylene cup liner. FINDINGS: ESTIMATED BLOOD LOSS: About 400 mL. DESCRIPTION OF PROCEDURE: The patient was given 2 g of IV Ancef preoperatively within 60 minutes of surgery. She also received 1000 mg of IV tranexamic acid preoperatively. She was placed on the oper ating room table and given spinal anesthesia with Marcaine by Dr. Russell. She was then placed supin e and given IV sedation. A Peña catheter was not used. She wore a KATHE stocking and SCD on the nono perative leg. She was rolled to the right lateral decubitus position. The position was secured with the pegboard table attachment. An axillary roll was used and all pressure points were carefully pad ded. I was careful to lock her pelvis in a rigid vertical position. Her perineum was isolated with plastic adhesive drapes. The left hip and left lower extremity were prepped with ChloraPrep. They w ere draped free using sterile sheets, stockinette and Ioban plastic adhesive drapes. The [employer] time-out was performed to verify the correct surgical side and site, an d the correct patient identity. The [place] time-out was also performed. I made a 6 to 7 inch straight oblique posterolateral hip skin incision. Subcutaneous tissues were sh arply divided and hemostasis was obtained using electrocautery. She had a very bulky thigh and butto cks and had a deep layer of subcutaneous fat. Her fascia keny was identified and split along the axi s of its fibers. I then curved posteriorly and proximally split the fascia of the gluteus apple an d bluntly split the muscle fibers in line with their orientation. The [place] self-retaining retrac tor was inserted. Her sciatic nerve was located, partially exposed and protected throughout the proc edure. The external rotators and the posterior hip capsule were divided as separate layers at the ba se of the femoral neck, tagged and reflected posteriorly. A smooth 8-inch Steinmann pin was inserted vertically into the ilium superior to the acetabulum. An 8-inch drill bit was inserted vertically i nto the greater trochanter and parallel to the first pin. The distance between the two was measured for leg length reference. Her femoral head was dislocated posteriorly. Severe degenerative changes were present on the femoral head. Her femoral neck was osteotomized at the appropriate level and inc lination. The exposure was difficult due to her size. I was careful to preserve all the posterior capsule and most of the anterior capsule. The remnant of her labrum was excised. I prepared the femur first. This allowed me to lining cleaner the amount of natural femoral neck anteversion. This, in turn, allowed me to later determine the correct amount of cup anteversion. She had approx imately 15 degrees of natural femoral neck anteversion. The canal was first opened laterally with th e power reamer. I then used the box chisel laterally against the greater trochanter. I hand broache d sequentially up to size 6. I used a size 6 Accolade II high-offset broach as a trial stem. I was careful to lateralize adequately. Appropriate retractors were inserted to expose her acetabulum. The acetabulum was reamed sequentiall y up to 54 mm. I selected a 54 mm Serene Tritanium Trident II cluster hole hemispherical shell. Th is was tapped securely into place in the proper degree of inclination and anteversion. I used the tr ansverse acetabular ligament and other acetabular bony landmarks to help me properly orient the cup. Fixation was tight and supplemental screws were not necessary. I performed a series of trial reductions to determine length and stability. I obtained intraoperativ e cross-table AP pelvis x-ray. I concluded that the size 6 high-offset stem with a -2.5 mm neck saturnino th and a 36 mm head with a 10-degree lipped liner gave me the proper combination of appropriate lengt h and good anterior and posterior stability. I was intentionally lengthening her a small amount zeke use she was short preoperatively on the left side. The 10-degree lipped [place] X3 highly cross-linked polyethylene liner was inserted and tapped secure ly into place. The [place] Accolade II stem in a size 6 with high offset was inserted, press-fit and was very tight. I did 1 final trial reduction and confirmed that the -2.5 mm neck length with the 3 6 mm head was the proper combination. The [place] Biolox Delta ceramic head with an outside diameter of 36 mm and a neck length of -2.5 mm was tapped securely onto the clean trunnion. The acetabulum w as irrigated, cleaned and the hip was reduced 1 final time. She had excellent anterior and posterior stability and appropriate length. 40 mL of the joint anesthetic cocktail were injected into the capsule, deep musculature and subcutane ous tissues along the skin edges. The joint was thoroughly irrigated 1 final time with a dilute Beta dine solution. Her sciatic nerve was reinspected and looked unharmed. 50 mL of tranexamic acid solu tion was irrigated into the wound. The external rotators and the posterior hip capsule were repaired in separate layers with #2 FiberWire sutures through drill holes in the greater trochanter. The fas kristan keny was closed first with 2 interrupted [id number] #2 FiberWire sutures followed by a runni ng #2 barbed Ethicon Stratafix PDO suture. Subcutaneous tissues were closed in layers with interrupt ed 2-0 Monocryl sutures followed by a running 0 barbed Ethicon Stratafix Monoderm suture. The subcut aneous tissues were closed with a running 3-0 barbed Ethicon Stratafix Monoderm subcuticular suture. The skin edges were reapproximated and sealed with Dermabond glue. The wound was covered with a lar ge Mepilex waterproof dressing. The sacral Mepilex dressing was also applied. A long-leg KATHE stocking and SCD were applied to the left lower extremity. She wore a stocking and SC D on the opposite leg during the procedure. A pillow was placed between her knees. She was awakened from anesthesia and rolled to the supine position on her [facility]. She was taken to PACU in satisfactory condition. There were no recognized intraoperative complications. COUNTS: The sponge and needle counts were correct on 2 occasions. I used a [place] Trident II Tritanium hemispherical cluster hole acetabular shell with an outside aletha meter of 54 mm. The liner was a [place] X3 10-degree lipped highly cross-linked liner with an inside diameter of 36 mm. The femoral component was a high offset Accolade II stem in size 6 and press-fit . The femoral head was a Serene Biolox Delta ceramic head with -2.5 mm neck length and a 36 mm outs renée diameter. Zion Salazar and Teofilo Macdonald acted as surgical assistants. Their assistance was a medical necess ity for safe completion of the procedure. /[id number]/MODL
[2018-09-21] MEDS: KETOROLAC 15 MG/1 ML SDV IVP SCH ×2 (13:28→22:06)
[2018-09-21] MEDS ORDERED: ceFAZolin 2 GM/DEXTROSE 100 ML IV SCH ×2 (14:00→16:00)
--- NOTE | 2018-09-21 14:24 | SOAPPROG ---
HUSSEIN Progress Note Assessment/Plan: Assessment: s/p left VIVIAN, posterior approach - procedure earlier today Plan: Begin d/c planning - she will likely go home tomorrow, will have support from family Continue pain medication Continue PT efforts- follow posterior VIVIAN precautions. PT will need to clear her prior to d/c Continue VTE ppx - Lovenox injections, SCDs, KATHE vanita Films looks good Sciatic nerve intact Subjective: Patient states left hip pain is mild at this time, currently rates pain 2.5 - 3. Most of the pain she complains of is in the left buttock region. She plans to go home tomorrow and will have the support of her family members. She is familiar with the recovery since she had right TKA in March [address] Griffith. She denies shortness of breath, chest pain, fever, chills, nausea, calf pain, headache. Reports she cannot take aspirin due to asthma, therefore she is receiving Lovenox injections for VTE ppx. Objective: Patient is resting comfortably in bed, no acute distress. There are 2 family members present in the room. LLE: Surgical wound dressing is clean, dry and intact. Lower leg compartments are soft and nontender. Negative Homans sign. She can actively DF and PF her left foot and left great toe against resistance. Grossly NVI distally. Vital Signs Temp Pulse Resp BP Pulse Ox 36.5 C 80 16 143/62 H 100 09/21/18 14:10 09/21/18 14:10 09/21/18 14:10 09/21/18 14:10 09/21/18 14:10 09/20/18 09/21/18 09/22/18 05:59 05:59 05:59 Intake Total 970 Output Total 0 Balance 970 ICD10 Worksheet Patient Problems: Problems Problem Status Onset Osteoarthritis of left hip Acute Arthrodesis status Acute Lumbar radicular pain Acute Lumbar stenosis Acute Osteoarthritis of right hip Acute
[2018-09-21] MEDS: GABAPENTIN 300 MG CAP PO SCH ×2 (16:15→22:07)
[2018-09-21] MEDS: ceFAZolin 2 GM/DEXTROSE 100 ML IV SCH (16:15)
[2018-09-21] MEDS: ACETAMINOPHEN 325 MG TAB PO SCH (17:58)
[2018-09-21] MEDS: FAMOTIDINE 20 MG TAB PO SCH (22:07)
[2018-09-21] MEDS: SENNOSIDES/DOCUSATE SODIUM TAB PO SCH (22:07)
[2018-09-22] MEDS: KETOROLAC 15 MG/1 ML SDV IVP SCH ×2 (01:13→09:11)
[2018-09-22] MEDS: ACETAMINOPHEN 325 MG TAB PO SCH ×3 (01:14→10:58)
[2018-09-22] MEDS: ceFAZolin 2 GM/DEXTROSE 100 ML IV SCH (01:53)
[2018-09-22 07:16] VITALS: BP 145/73
--- NOTE | 2018-09-22 07:26 | SOAPPROG ---
SOAP Progress Note Assessment/Plan: Assessment: Afebrile. Awake and alert. Moderate pain. She has been up and walking in the room. Sciatic nerve intact. Postop films look excellent. Postop H&H are good. She has a slight amount of bleeding at the lower end of her dressing. Plan: Continue physical therapy today. Discharge later today. 09/22/18 07:25 Objective: Vital Signs Temp Pulse Resp BP Pulse Ox 36.4 C 57 L 18 145/73 H 95 09/22/18 07:15 09/22/18 07:15 09/22/18 07:15 09/22/18 07:15 09/22/18 07:15 Laboratory Results 09/22/18 04:23 09/21/18 09/22/18 09/23/18 05:59 05:59 05:59 Intake Total 1825 Output Total 1300 Balance 525 ICD10 Worksheet Patient Problems: Problems Problem Status Onset Osteoarthritis of left hip Acute Arthrodesis status Acute Lumbar radicular pain Acute Lumbar stenosis Acute Osteoarthritis of right hip Acute
[2018-09-22] MEDS ORDERED: FERROUS SULFATE 325 MG TAB PO SCH (08:00)
--- NOTE | 2018-09-22 08:21 | GDS ---
[f rep st] DISCHARGE SUMMARY ADMISSION DIAGNOSIS: Left hip severe degenerative arthritis. DISCHARGE DIAGNOSIS: Left hip severe degenerative arthritis. OPERATION PERFORMED: 09/21/2018, a left total hip arthroplasty. POSTOPERATIVE COMPLICATIONS: None. CONDITION ON DISCHARGE: Improved. DESCRIPTION OF HOSPITAL COURSE: The patient was admitted to the hospital on the morning of surgery. Her admission CBC was normal. The same day, under a combination of Marcaine, spinal, and IV sedatio n, she underwent a left total hip arthroplasty. Postoperatively, she was treated with multimodal DVT prophylaxis, including Lovenox. She has asthma and cannot tolerate aspirin. She was seen by Physic al Therapy and made good progress with ambulation and stairs. On the first postoperative day, her he moglobin and hematocrit were 12.8 and 39.3. By the time of discharge, she was afebrile and was indep endent walking with a walker. DISPOSITION: Patient discharged to her home. She will go to outpatient physical therapy next week. She may progress to full weightbearing as tolerated on the left. Use an abduction pillow in bed for 3 weeks. KATHE stockings for 1 week. Continue Lovenox 40 mg subcu daily for 21 days. She has prescr iptions for oxycodone, tramadol and Celebrex for pain control. I will see her back in the office on October 11, 2018. If there any problems, she is to call me at the office. /[id number]/MODL
[2018-09-22] MEDS ORDERED: ENOXAPARIN 40 MG/0.4 ML SYR SC SCH (09:00)
[2018-09-22] MEDS ORDERED: LISINOPRIL 10 MG TAB PO SCH (09:00)
[2018-09-22] MEDS: FAMOTIDINE 20 MG TAB PO SCH (09:11)
[2018-09-22] MEDS: GABAPENTIN 300 MG CAP PO SCH (09:12)
[2018-09-22] MEDS: SENNOSIDES/DOCUSATE SODIUM TAB PO SCH (09:12)
--- NOTE | 2018-09-22 09:28 | ASMTLACE ---
LACE Length of stay for Answers: 2 days current admission Acuity / Level of Answers: Yes Care: Did the patient have an inpatient admission? Comorbidities - select Answers: Opioid dependence all that apply / Chronic pain Other Notes: HTN # of Emergency department Answers: 0 visits in the last 6 months Score: 10 Date Signed: 09/22/2018 09:27 AM Electronically Signed By:YOGESH Acosta
--- NOTE | 2018-09-22 09:30 | ASMTCMCOM ---
CM Note CM Note Notes: Pt had planned hip surgery. OT rec home, PT rec home/outpatient. rec outpatient. Pt medically stable for d/c, no CM d/c needs identified. Date Signed: 09/22/2018 09:29 AM Electronically Signed By:YOGESH Acosta
== END 2018-09-22 11:01 | disposition home or self-care (01) | DRG 470 ==
LOC: F3N 07:59
PROVIDERS: ADMIT Orthopaedic Surgery; ATTEND Orthopaedic Surgery
PROC: 0SRB04A Replacement of Left Hip Joint with Ceramic on Polyethylene Synthetic Substitute, Uncemented, Open Approach (ICD-10-PCS; principal; 2018-09-21 09:45)
DX: M16.12 Unilateral primary osteoarthritis, left hip (principal); J45.909 Unspecified asthma, uncomplicated; I10 Essential (primary) hypertension; E78.1 Pure hyperglyceridemia; Z98.1 Arthrodesis status; Z96.641 Presence of right artificial hip joint
CPT/HCPCS: 97116-GP; 97161-GP; 97165-GO; J0171; J0690; J1100; J1650; J1885; J2405; J2704; J2795; J3010